=== PATIENT | female | born 1995 | race Caucasian/White ===

== ENCOUNTER 2020-09-01 07:58 | Outpatient (REF) | payer OTHER, SELFPAY ==
[2020-09-01 11:13] LABS: MANUAL DIFF FLAG NO
[2020-09-01 11:24] LABS: Basophils Percent Auto 0.7 % (0-2); Eosinophils Absolute Auto 0.3 X10*3/uL (0.0-0.4); Eosinophils Percent Auto 4.4 % (0-4); Hematocrit 37.5 % (37-47); Hemoglobin 12.7 g/dl (12.0-16.0); Imm Gran Abs Auto 0.02 X10*3/uL (0.00-0.03); Imm Gran Pct Auto 0.3 % (0.0-0.4); Lymphocytes Absolute Auto 1.9 X10*3/uL (1.2-4.9); Lymphocytes Percent Auto 31.6 % (20-40); Mean Corpuscular HGB Conc 33.9 g/dl (31.0-35.0); Mean Corpuscular Hemoglobin 30.7 pg (27.0-33.0); Mean Corpuscular Volume 90.6 fL (80-98); Mean Platelet Volume 9.8 fL (9.4-12.3); Monocytes Absolute Auto 0.5 X10*3/uL (0.1-1.2); Monocytes Percent Auto 7.6 % (2-11); Neutrophils Absolute Auto 3.4 X10*3/uL (2.0-8.3); Neutrophils Percent Auto 55.4 % (45-73); Platelet Count 289 X10*3/uL (160-400); Red Blood Count 4.14 X10*6/uL (4.20-5.50); White Blood Count 6.1 X10*3/uL (4.8-10.8)
[2020-09-01 11:41] LABS: Anion Gap 10 (12-20); Blood Urea Nitrogen 11 mg/dL (9-16); Calcium 8.9 mg/dL (8.4-10.2); Carbon Dioxide 29 mmol/L (22-29); Chloride 105 mmol/L (96-108); Cholesterol 153 mg/dL; Estimated Glomerular Filt Rate > 60; Glucose Fasting 94 mg/dL (60-99); HDL Cholesterol 44 mg/dL; LDL Cholesterol Calculated 96 mg/dl; Magnesium 2.1 mg/dL (1.6-2.6); Potassium 4.5 mmol/l (3.3-5.1); Sodium 139 mmol/L (135-145); Triglycerides 69 mg/dL
[2020-09-01 12:03] LABS: TSH reflex Free T4 1.53 mIU/mL (0.32-4.0)
== END 2020-09-01 07:59 | disposition home or self-care (01) ==
LOC: HO.HMGCLDS 07:58
PROVIDERS: PCP Internal Medicine; Visit Provider Internal Medicine
DX: R10.13 Epigastric pain (principal); F10.11 Alcohol abuse, in remission; Z00.01 Encounter for general adult medical examination with abnormal findings; E04.9 Nontoxic goiter, unspecified; F41.1 Generalized anxiety disorder
CPT/HCPCS: 36415; 80048; 80061; 83735; 84443; 85025

== ENCOUNTER 2020-09-13 09:45 | Outpatient (REF) | payer OTHER, SELFPAY ==
--- NOTE | 2020-09-13 09:48 | US_ITS ---
EXAMINATION: US THYROID CLINICAL INFORMATION: Nontoxic goiter, unspecified. COMPARISON: None. TECHNIQUE: Linear transducer mazariegos-scale and color Doppler examination with attention to the region of the thyroid. FINDINGS: SIZE: Measurements of the thyroid lobes and nodules are given in sagittal, anteroposterior and transverse dimensions respectively. Right Thyroid Lobe: 5.4 x 1.5 x 1.7 cm, volume 6.9 mL. Parenchyma: The gland echotexture is homogeneous. Thyroid vascularity is increased. Left Thyroid Lobe: 4.9 x 1.3 x 1.9 cm, volume 6.4 mL. Parenchyma: The gland echotexture is homogeneous. Thyroid vascularity is increased. Isthmus: 0.4 cm in maximum AP dimension. RIGHT THYROID LOBE: No nodules. ISTHMUS: No nodules. LEFT THYROID LOBE: No nodules. NODES: No lymphadenopathy is seen in the tissue surrounding the thyroid gland. US/US thyroid IMPRESSION: Normal thyroid ultrasound.
== END 2020-09-13 09:46 | disposition home or self-care (01) ==
LOC: HO.HMGCX 09:45
PROVIDERS: PCP Internal Medicine; Visit Provider Internal Medicine
DX: E04.9 Nontoxic goiter, unspecified (principal)
CPT/HCPCS: 76536

== ENCOUNTER 2020-10-30 11:17 | Outpatient (REF) | payer OTHER, SELFPAY ==
[2020-11-01 08:27] LABS: ~Hepatitis B Surface Antibody NONREACTIVE (Nonreactive)
== END 2020-10-30 11:18 | disposition home or self-care (01) ==
LOC: HO.HMGCLDS 11:17
PROVIDERS: PCP Internal Medicine; Visit Provider Internal Medicine
DX: Z28.3 Underimmunization status (principal)
CPT/HCPCS: 36415; 86706

== ENCOUNTER 2020-12-22 09:48 | Outpatient (REF) | payer OTHER, SELFPAY ==
[2020-12-22 11:53] LABS: Cholesterol 138 mg/dL; Glucose Fasting 89 mg/dL (60-99); HDL Cholesterol 42 mg/dL; LDL Cholesterol Calculated 83 mg/dl; Triglycerides 65 mg/dL
[2020-12-25 10:52] LABS: TS Negative Control Passed; TS Panel A 0; TS Panel B 0; TS Positive Control Passed; TSpotTB Negative (SeeBelow)
[2020-12-30 05:12] LABS: Vitamin D 25-OH, D2 <4 ng/mL; Vitamin D 25-OH, D3 20 ng/mL; Vitamin D 25-OH, Total 20 ng/mL (30-100)
== END 2020-12-22 09:49 | disposition home or self-care (01) ==
LOC: HO.HMGCLDS 09:48
PROVIDERS: PCP Internal Medicine; Visit Provider Internal Medicine
DX: Z00.00 Encounter for general adult medical examination without abnormal findings (principal); R10.13 Epigastric pain; Z13.220 Encounter for screening for lipoid disorders; Z11.1 Encounter for screening for respiratory tuberculosis; Z23 Encounter for immunization
CPT/HCPCS: 36415; 80061; 82306; 82947; 86481

== ENCOUNTER 2021-01-08 12:35 | Outpatient (REF) | payer OTHER, SELFPAY ==
[2021-01-09 08:21] LABS: HBS Num1 24.42 mIU/mL (0-7.99); ~Hepatitis B Surface Antibody REACTIVE (Nonreactive)
== END 2021-01-08 12:36 | disposition home or self-care (01) ==
LOC: HO.HMGCLDS 12:35
PROVIDERS: PCP Internal Medicine; Visit Provider Internal Medicine
DX: Z28.3 Underimmunization status (principal)
CPT/HCPCS: 36415; 86706; 86787

== ENCOUNTER 2021-02-01 14:34 | Outpatient (REF) | payer OTHER, SELFPAY ==
[2021-02-01 16:57] LABS: Alanine Aminotransferase 19 U/L (0-31); Albumin Level 4.3 g/dL (3.5-5.0); Alkaline Phosphatase 62 U/L (39-117); Aspartate Amino Transferase 17 U/L (5-31); Bilirubin Direct 0.2 mg/dL (0.0-0.5); Bilirubin Total 0.5 mg/dL (0.0-1.0); C Reactive Protein 0.31 mg/dL (< or = 0.50); Lipase 47 U/L (8-78); Total Protein 6.9 g/dL (6.5-8.0)
[2021-02-03 14:02] LABS: H Pylori Breath Test NOT DETECTED (NOT DETECTED)
[2021-02-07 17:12] LABS: Transglutaminase Ab IgG 1 U/mL; Transglutaminase IgA 1 U/mL
== END 2021-02-01 14:35 | disposition home or self-care (01) ==
LOC: HO.LAB 14:34
PROVIDERS: PCP Internal Medicine; Visit Provider Nurse Practitioner Family
DX: R10.13 Epigastric pain (principal); R10.11 Right upper quadrant pain; R19.7 Diarrhea, unspecified; F17.200 Nicotine dependence, unspecified, uncomplicated; Z83.79 Family history of other diseases of the digestive system; Z12.11 Encounter for screening for malignant neoplasm of colon
CPT/HCPCS: 36415; 80076; 83013; 83516; 83690; 86140

== ENCOUNTER 2021-02-19 07:59 | Outpatient (REF) | payer OTHER, SELFPAY ==
--- NOTE | ~2021-02-19 | US_ITS ---
EXAMINATION: US ABDOMEN COMPLETE CLINICAL INFORMATION: Epigastric pain. COMPARISON: Previous renal ultrasound February 2016 TECHNIQUE: Real-time imaging of the abdominal viscera. FINDINGS: PANCREAS: The head and body the pancreas are normal. The tail is not well visualized due to bowel gas. ABDOMINAL AORTA: The proximal, mid, and distal segments are normal in caliber. INFERIOR VENA CAVA: Visualized portions are normal. LIVER: The liver is normal in size. The liver contour is normal. Liver echotexture is slightly increased. No focal hepatic lesion. There is no intrahepatic biliary duct dilatation seen. GALLBLADDER: The gallbladder is contracted. COMMON BILE DUCT: Normal in caliber measuring 0.2 cm in diameter. RIGHT KIDNEY: Normal. No hydronephrosis. No renal calculi or focal parenchymal lesions. The kidney measures 11.3 cm in maximum dimension. LEFT KIDNEY: Normal. No hydronephrosis. No renal calculi or focal parenchymal lesions. The kidney measures 11.5 cm in maximum dimension. SPLEEN: Normal. The spleen measures 11.5 cm in maximum dimension. FREE FLUID: None. US/US abdomen complete IMPRESSION: Slightly echogenic liver. Contracted gallbladder. Limited visualization of the tail the pancreas.
== END 2021-02-19 08:00 | disposition home or self-care (01) ==
LOC: HO.US 07:59
PROVIDERS: PCP Internal Medicine; Visit Provider Nurse Practitioner Family
DX: R10.13 Epigastric pain (principal)
CPT/HCPCS: 76700

== ENCOUNTER → 2021-03-07 09:25 | Outpatient (BNVA) | payer OTHER, SELFPAY | PROVIDERS: PCP Internal Medicine; Referring Provider Internal Medicine; Visit Provider Nurse Practitioner Family | DX: K21.9 Gastro-esophageal reflux disease without esophagitis (principal); R10.13 Epigastric pain; R19.7 Diarrhea, unspecified; F10.21 Alcohol dependence, in remission; Z88.8 Allergy status to other drugs, medicaments and biological substances | CPT/HCPCS: 99212 ==

== ENCOUNTER 2021-06-25 08:26 | Outpatient (REF) | payer OTHER, SELFPAY ==
[2021-06-25 11:54] LABS: MANUAL DIFF FLAG NO
[2021-06-25 12:12] LABS: Basophils Absolute Auto 0.1 X10*3/uL (0.0-0.2); Basophils Percent Auto 0.9 % (0-2); Eosinophils Absolute Auto 0.4 X10*3/uL (0.0-0.4); Eosinophils Percent Auto 6.6 % (0-4); Hematocrit 38.2 % (37-47); Hemoglobin 12.9 g/dl (12.0-16.0); Imm Gran Abs Auto 0.01 X10*3/uL (0.00-0.03); Imm Gran Pct Auto 0.2 % (0.0-0.4); Lymphocytes Absolute Auto 2.1 X10*3/uL (1.2-4.9); Lymphocytes Percent Auto 33.7 % (20-40); Mean Corpuscular HGB Conc 33.8 g/dl (31.0-35.0); Mean Corpuscular Hemoglobin 30.4 pg (27.0-33.0); Mean Corpuscular Volume 89.9 fL (80-98); Mean Platelet Volume 9.7 fL (9.4-12.3); Monocytes Absolute Auto 0.4 X10*3/uL (0.1-1.2); Monocytes Percent Auto 6.5 % (2-11); Neutrophils Absolute Auto 3.3 X10*3/uL (2.0-8.3); Neutrophils Percent Auto 52.1 % (45-73); Platelet Count 300 X10*3/uL (160-400); Red Blood Count 4.25 X10*6/uL (4.20-5.50); Red Cell Distribution Width 11.2 % (11.0-16.0); White Blood Count 6.4 X10*3/uL (4.8-10.8)
[2021-06-25 12:39] LABS: Alanine Aminotransferase 14 U/L (0-31); Albumin Level 4.3 g/dL (3.5-5.0); Alkaline Phosphatase 46 U/L (39-117); Anion Gap 10 (12-20); Aspartate Amino Transferase 15 U/L (5-31); Bilirubin Total 0.5 mg/dL (0.0-1.0); Blood Urea Nitrogen 11 mg/dL (9-16); Calcium 9.4 mg/dL (8.4-10.2); Carbon Dioxide 26 mmol/L (22-29); Chloride 107 mmol/L (96-108); Cholesterol 149 mg/dL; Estimated Glomerular Filt Rate > 60; Glucose Fasting 80 mg/dL (60-99); HDL Cholesterol 41 mg/dL; LDL Cholesterol Calculated 80 mg/dl; Potassium 3.8 mmol/L (3.3-5.1); Sodium 139 mmol/L (135-145); Triglycerides 144 mg/dL
[2021-06-25 12:50] LABS: Vitamin B12 537 pg/mL (200-900)
[2021-06-25 12:51] LABS: TSH reflex Free T4 1.73 uIU/mL (0.32-4.0)
[2021-06-29 14:11] LABS: Vitamin D 25-OH, D2 <4 ng/mL; Vitamin D 25-OH, D3 22 ng/mL; Vitamin D 25-OH, Total 22 ng/mL (30-100)
== END 2021-06-25 08:27 | disposition home or self-care (01) ==
LOC: HO.HMGCLDS 08:26
PROVIDERS: PCP Internal Medicine; Visit Provider Internal Medicine
DX: F41.1 Generalized anxiety disorder (principal); R00.2 Palpitations; R06.00 Dyspnea, unspecified; Z72.0 Tobacco use
CPT/HCPCS: 36415; 80053; 80061; 82306; 82607; 84443; 85025

== ENCOUNTER 2023-03-26 10:55 | Outpatient (AMB) | payer OTHER, SELFPAY ==
--- NOTE | 2023-03-26 10:56 | MHC.PC.OV ---
Vital Signs 03/26/23 10:59 Height 5 ft 1 in Weight 165 lb BMI 31.2 BP 116/74 Blood Pressure Location Lt brachial Position Sitting Pulse 84 Pulse Source Pulse Oximeter Pulse Oximetry (%) 99 Oxygen Delivery Method Room Air Intake Visit Reasons: ANNUAL PE Allergies No Known Allergies Allergy (Verified 03/26/23 11:00) Medication List - Last Reconciled 03/26/23 by Roger Dill MD bupropion HCl 200 mg PO QAM norethindrone (contraceptive) 0.35 mg PO DAILY Tobacco use date assessed: 03/26/23 Dental Screening Dental Screen Date: 03/26/23 Did you have a dental visit in the last 12 months?: Yes Did you have a dental problem in the last 6 months where you did not have access to dental care?: No Was dental information given to patient?: No HPI ANNUAL PE HPI Details Patient is 28-year-old female came in today for a physical exam Patient is seeing OBGYN in [facility] every year last visit was 6 months ago Pap smear and breast exams are through them. Patient is complaining of feeling as if there is something stuck in her throat At time she is feeling pain and having difficulty swallowing as well. Patient says that it has been happening for the past 6 months pretty consistently. She has no fever no cough no chills, she drinks no alcohol or smoke cigarettes, very occasionally she does smoke marijuana. On examination she does have enlarged tonsils mild erythema of throat but no infection I have placed a referral for her to be evaluated by ENT specialist. Depression/anxiety: Patient is taking Wellbutrin through psych med provider Lab order placed to be done fasting. BMI is elevated at 31.2 need to lose weight. [facility] Medical History Anxiety, generalized Encounter for general adult medical examination with abnormal findings Epigastric abdominal pain History of alcohol abuse Tobacco abuse Surgical History No pertinent past surgical history Family History Father Unknown family medical history Mother Unknown family medical history Social History Housing: House Alcohol intake: never Patient Tobacco Use Status: Former Tobacco user (2019) Tobacco use type: Cigarette Years Smoked: 10 years e-Cigarette/Vaping Use: Never Used service: No Current occupational status: employed Cognitive needs: No Hearing needs: No Vision needs: No Questionnaire Thrive Questionnaire Date Thrive assessed: 03/27/22 AUDIT C Alcohol Use Questionnaire (AUDIT-C) 1. How often do you have a drink containing alcohol?: Never 3. How often do you have six or more drinks on one occasion?: Never Total Score: 0 Score Reviewed/Action Taken: Yes AMELIE-7 AMB Questionnaire AMELIE-7 Date AMELIE - 7 assessed: 11/16/21 Source: Developed by Drs. Tito Encinas, Mayte Pierson, Valdemar Garcia and colleagues, with an educational piedad from [employer] Review of Systems Const Denies chills, Denies fever(s) and Denies headache(s) Eyes Denies blurry vision ENT Denies headache(s), Denies nasal discharge, Denies nasal obstruction, Denies odynophagia and Denies sinus pain Card Denies chest pain at rest and Denies chest pain with activity Resp Denies cough and Denies hemoptysis GI Denies diarrhea, Denies odynophagia, Denies vomiting and Denies hematemesis Reports as per HPI Musc Denies abnormal gait Skin/Breast Reports as per HPI Neuro Denies Neuro-related abnormal movements, Denies Abnormal speech present, Denies abnormal gait, Denies headache(s) and Denies Sensory deficit (Neuro) Psych Denies mood swings and Denies paranoia Endo Reports as per HPI Jim/Lymph Reports as per HPI Aller/Immun Reports as per HPI Physical exam (Primary Care) Vital Signs: Last Vital Signs Pulse 84 03/26/23 10:59 BP 116/74 03/26/23 10:59 Pulse Ox 99 03/26/23 10:59 Oxygen Delivery Method Room Air 03/26/23 10:59 BMI result Body Mass Index 31.2 Tobacco/Smoking Status: Tobacco use Status Tobacco use date assessed 03/26/23 03/26/23 11:02 Patient Tobacco Use Status Former Tobacco user (2019) 03/26/23 11:02 Tobacco use type Cigarette 03/26/23 11:02 e-Cigarette/Vaping Use Never Used 03/26/23 11:02 Thrive Assessment: Date of Thrive Assessment Date Thrive assessed 03/27/22 03/26/23 11:02 Const General: cooperative, comfortable and no acute distress Orientation/consciousness: patient oriented x3 HENMT Head: Yes normocephalic and Yes atraumatic Eyes General: appearance normal, both eyes and all related structures Pupils: Equal, round and reactive pupils present EOM: EOMs intact bilaterally Neck Neck: Yes supple and No lymphadenopathy Thyroid: Thyroid normal Lymphatic: no lymphadenopathy noted Resp Effort & Inspection: normal respiratory effort and able to speak in complete sentences Auscultation: clear to auscultation bilaterally Cardio Heart sounds: S1 normal heart sound present and S2 normal heart sound present GI Palpation (GI): Soft to palpation and nontender Auscultation: normal bowel sounds General: Yes no CVA tenderness Back/Spine/Pelvis Back: no CVA tenderness Skin General skin exam: elasticity normal and turgor normal Neuro General: patient oriented x3 and gait normal Cranial nerves: Yes Equal, round and reactive pupils present Speech: No Abnormal speech present Sensory Exam: No Sensory deficit (Neuro) Coordination: tandem gait normal and Romberg test negative Extrem General: Yes normal exam except as noted and No edema Assessment and Plan Assessment & Plan (1) Throat discomfort: Code(s): R07.0 - Pain in throat (2) Encounter for general adult medical examination with abnormal findings: Code(s): Z00.01 - Encounter for general adult medical examination with abnormal findings (3) Feeling of foreign body in throat: Code(s): R09.89 - Other specified symptoms and signs involving the circulatory and respiratory systems (4) Tobacco abuse: Code(s): Z72.0 - Tobacco use (5) Major depression, recurrent: Code(s): F33.9 - Major depressive disorder, recurrent, unspecified (6) Vitamin D deficiency: Code(s): E55.9 - Vitamin D deficiency, unspecified Plan Patient is 28-year-old female came in today for a physical exam Patient is seeing OBGYN in [facility] every year last visit was 6 months ago Pap smear and breast exams are through them. Patient is complaining of feeling as if there is something stuck in her throat At time she is feeling pain and having difficulty swallowing as well. Patient says that it has been happening for the past 6 months pretty consistently. She has no fever no cough no chills, she drinks no alcohol or smoke cigarettes, very occasionally she does smoke marijuana. On examination she does have enlarged tonsils mild erythema of throat but no infection I have placed a referral for her to be evaluated by ENT specialist. Lab order placed to be done fasting. BMI is elevated at 31.2 need to lose weight. Orders: Orders Comprehensive [place]. Panel Fast Today E55.9 - Vitamin D deficiency, unspecified, F33.9 - Major depressive disorder, recurrent, unspecified, F41.1 - Generalized anxiety disorder, Z00.01 - Encounter for general adult medical examination with abnormal findings, Z72.0 - Tobacco use Lipid Panel Today E55.9 - Vitamin D deficiency, unspecified, F33.9 - Major depressive disorder, recurrent, unspecified, F41.1 - Generalized anxiety disorder, Z00.01 - Encounter for general adult medical examination with abnormal findings, Z72.0 - Tobacco use Vitamin D 25-OH (D2 and D3) Today E55.9 - Vitamin D deficiency, unspecified, F33.9 - Major depressive disorder, recurrent, unspecified, F41.1 - Generalized anxiety disorder, Z00.01 - Encounter for general adult medical examination with abnormal findings, Z72.0 - Tobacco use Complete Blood Count Auto Diff Today E55.9 - Vitamin D deficiency, unspecified, F33.9 - Major depressive disorder, recurrent, unspecified, F41.1 - Generalized anxiety disorder, Z00.01 - Encounter for general adult medical examination with abnormal findings, Z72.0 - Tobacco use Referrals Ear/Nose/Throat Referral R07.0 - Pain in throat, R09.89 - Other specified symptoms and signs involving the circulatory and respiratory systems Coding Level of Care Code Est Pt Prev Care 18-39y(06446) Diagnoses Throat discomfort R07.0 Encounter for general adult medical examination with abnormal findings Z00.01 Feeling of foreign body in throat R09.89 Tobacco abuse Z72.0 Major depression, recurrent F33.9 Vitamin D deficiency E55.9
[2023-03-26 10:59] VITALS: BP 116/74; PULSE 84; O2SAT 99; BMI 31.2
== END 2023-03-26 11:14 | disposition home or self-care (01) ==
PROVIDERS: Visit Provider Internal Medicine
DX: Z00.01 Encounter for general adult medical examination with abnormal findings (principal); R07.0 Pain in throat; F33.9 Major depressive disorder, recurrent, unspecified; E55.9 Vitamin D deficiency, unspecified; R09.89 Other specified symptoms and signs involving the circulatory and respiratory systems; Z72.0 Tobacco use
CPT/HCPCS: 99395

== ENCOUNTER 2024-03-31 11:31 | Outpatient (AMB) | payer OTHER, SELFPAY ==
[2024-03-31 11:35] VITALS: BP 120/70; PULSE 64; O2SAT 100; BMI 29.7
--- NOTE | 2024-03-31 11:35 | MHC.PC.OV ---
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 Type Required: No Allergies No Known Allergies Allergy (Verified 03/31/24 11:36) Medication List - Last Reconciled 03/31/24 by Roger Dill MD norethindrone (contraceptive) 0.35 mg PO DAILY Tobacco use date assessed: 03/31/24 Dental Screening Dental Screen Date: 03/31/24 Did you have a dental visit in the last 12 months?: Yes Did you have a dental problem in the last 6 months where you did not have access to dental care?: No Was dental information given to patient?: Yes HPI ANNUAL PE HPI Details Physical exam appointment patient is 28-year-old female [facility] through [facility] as well Offer no new complaints today Lab order placed to be done fasting Patient have vitamin-D deficiency she is taking supplements daily. Physical exam 1 year [facility] Medical History Tobacco abuse Encounter for general adult medical examination with abnormal findings History of alcohol abuse Epigastric abdominal pain Anxiety, generalized Surgical History No pertinent past surgical history Family History Father Unknown family medical history Mother Unknown family medical history Social History Housing: House Alcohol intake: never Patient Tobacco Use Status: Former Tobacco user (2019) Tobacco use type: Cigarette Years Smoked: 10 years e-Cigarette/Vaping Use: Never Used service: No Current occupational status: employed Cognitive needs: No Hearing needs: No Vision needs: No Questionnaire PHQ-9 Over the last 2 weeks, how often have you been bothered by any of the following problems? 1. Little interest or pleasure in doing things: not at all 2. Feeling down, depressed, or hopeless: not at all 3. Trouble falling or staying asleep, or sleeping too much: not at all 4. Feeling tired or having little energy: not at all 5. Poor appetite or overeating: not at all 6. Feeling bad about yourself - or that you are a failure or have let yourself or your family down: not at all 7. Trouble concentrating on things, such as reading the newspaper or watching television: not at all 8. Moving or speaking so slowly that other people could have noticed. Or the opposite - being so fidgety or restless that you have been moving around a lot more than usual: not at all 9. Thoughts that you would be better off or of hurting yourself in some way: not at all Total score: 0 Depression Screening Interpretation: Negative Depression Screening Done: Yes 93532 - PHQ-9 Billing: Yes Source: Developed by Drs. Tito Encinas, Mayte Pierson, Valdemar Garcia and colleagues, with an educational piedad from [employer]. Thrive Questionnaire Date Thrive assessed: 03/31/24 I am a: Patient What is your living situation today?: I have a steady place to live Within the past 12 months, did the food you bought not last and you didn't have the money to get more?: Never true Within the past 12 months, did you worry whether your food would run out before you got money to buy more?: Never true Do you have trouble paying for medicines?: No Do you have trouble getting transportation to medical appointments?: No Do you have trouble paying your heating and electricity bill?: No Do you have trouble taking care of your child, family member or friend?: No Do you have trouble with day-to-day activities such as bathing, preparing meals, shopping, managing finances, etc.?: No Are you currently unemployed and looking for a job?: No Are you interested in more education?: No Please select the resources that you would like help with: Housing/Intermediate Currently or been in a relationship where the following occur: No concerns reported THRIVE Score: 0 AUDIT C Alcohol Use Questionnaire (AUDIT-C) 1. How often do you have a drink containing alcohol?: Never Total Score: 0 Score Reviewed/Action Taken: Yes AMELIE-7 AMB Questionnaire AMELIE-7 Date AMELIE - 7 assessed: 03/31/24 Feeling nervous, anxious, or on edge: 1 = Several days Not being able to stop or control worryin = Several days Worrying too much about different things: 1 = Several days Trouble relaxin = Several days Being so restless that it is hard to sit still: 0 = Not at all Becoming easily annoyed or irritable: 0 = Not at all Feeling afraid as if something awful might happen: 0 = Not at all Total AMELIE-7 score (0-4 normal; 5-9 mild; 10-14 moderate; 15-21 severe): 4 Source: Developed by Drs. Tito Encinas, Mayte Pierson, Valdemar Garcia and colleagues, with an educational piedad from [employer]. AMELIE-7 Assessment Billing AMELIE-7 Assessment Tool: AMELIE-7 Assessment 84512 Review of Systems Const Denies chills, Denies fever(s) and Denies headache(s) Eyes Denies blurry vision ENT Denies headache(s), Denies nasal discharge, Denies nasal obstruction, Denies odynophagia and Denies sinus pain Card Denies chest pain at rest and Denies chest pain with activity Resp Denies cough and Denies hemoptysis GI Denies diarrhea, Denies odynophagia, Denies vomiting and Denies hematemesis Reports as per HPI Musc Denies abnormal gait Skin/Breast Reports as per HPI Neuro Denies Neuro-related abnormal movements, Denies Abnormal speech present, Denies abnormal gait, Denies headache(s) and Denies Sensory deficit (Neuro) Psych Denies mood swings and Denies paranoia Endo Reports as per HPI Jim/Lymph Reports as per HPI Aller/Immun Reports as per HPI Physical exam (Primary Care) Vital Signs: Last Vital Signs Pulse 64 03/31/24 11:35 BP 120/70 03/31/24 11:35 Pulse Ox 100 03/31/24 11:35 BMI result Body Mass Index 29.7 Tobacco/Smoking Status: Tobacco use Status Tobacco use date assessed 03/31/24 03/31/24 11:36 Patient Tobacco Use Status Former Tobacco user (2020) 03/31/24 11:36 Tobacco use type Cigarette 03/31/24 11:36 e-Cigarette/Vaping Use Never Used 03/31/24 11:36 PHQ-9: PHQ-9 Score PHQ-9: Total score 0 03/31/24 11:36 Depression Screening Interpretation: Negative Thrive Assessment: Date of Thrive Assessment Date Thrive assessed 03/31/24 03/31/24 11:36 Currently or been in a relationship where the following occur: No concerns reported Const General: cooperative, comfortable and no acute distress Orientation/consciousness: patient oriented x3 HENMT Head: Yes normocephalic and Yes atraumatic Eyes General: appearance normal, both eyes and all related structures Pupils: Equal, round and reactive pupils present EOM: EOMs intact bilaterally Neck Neck: Yes supple and No lymphadenopathy Thyroid: Thyroid normal Lymphatic: no lymphadenopathy noted Resp Effort & Inspection: normal respiratory effort and able to speak in complete sentences Auscultation: clear to auscultation bilaterally Cardio Heart sounds: S1 normal heart sound present and S2 normal heart sound present GI Palpation (GI): Soft to palpation and nontender Auscultation: normal bowel sounds General: Yes no CVA tenderness Back/Spine/Pelvis Back: no CVA tenderness Skin General skin exam: elasticity normal and turgor normal Neuro General: patient oriented x3 and gait normal Cranial nerves: Yes Equal, round and reactive pupils present Speech: No Abnormal speech present Sensory Exam: No Sensory deficit (Neuro) Coordination: tandem gait normal and Romberg test negative Extrem General: Yes normal exam except as noted and No edema Assessment and Plan Assessment & Plan (1) Adult general medical examination: Code(s): Z00.00 - Encounter for general adult medical examination without abnormal findings (2) Anxiety, generalized: Code(s): F41.1 - Generalized anxiety disorder (3) Vitamin D deficiency: Code(s): E55.9 - Vitamin D deficiency, unspecified Plan Physical exam appointment patient is 28-year-old female [facility] as well Offer no new complaints today Lab order placed to be done fasting Patient have vitamin-D deficiency she is taking supplements daily. Anxiety stable patient is seeing therapist Physical exam 1 year Orders: Orders Complete Blood Count Auto Diff Today E55.9 - Vitamin D deficiency, unspecified, F33.9 - Major depressive disorder, recurrent, unspecified, F41.1 - Generalized anxiety disorder, Z00.01 - Encounter for general adult medical examination with abnormal findings Comprehensive [place]. Panel Fast Today E55.9 - Vitamin D deficiency, unspecified, F33.9 - Major depressive disorder, recurrent, unspecified, F41.1 - Generalized anxiety disorder, Z00.01 - Encounter for general adult medical examination with abnormal findings Lipid Panel Today E55.9 - Vitamin D deficiency, unspecified, F33.9 - Major depressive disorder, recurrent, unspecified, F41.1 - Generalized anxiety disorder, Z00.01 - Encounter for general adult medical examination with abnormal findings TSH reflex Free T4 Today E55.9 - Vitamin D deficiency, unspecified, F33.9 - Major depressive disorder, recurrent, unspecified, F41.1 - Generalized anxiety disorder, Z00.01 - Encounter for general adult medical examination with abnormal findings Vitamin D 25-OH (D2 and D3) Today E55.9 - Vitamin D deficiency, unspecified, F33.9 - Major depressive disorder, recurrent, unspecified, F41.1 - Generalized anxiety disorder, Z00.01 - Encounter for general adult medical examination with abnormal findings Coding Level of Care Code Est Pt Prev Care 18-39y(59437) Diagnoses Adult general medical examination Z00.00 Anxiety, generalized F41.1 Vitamin D deficiency E55.9 Additional Codes AMELIE-7 Assessment Billing - AMELIE-7 Assessment Tool: AMELIE-7 Assessment [id number] ([id number])
== END 2024-03-31 16:30 | disposition home or self-care (01) ==
PROVIDERS: PCP Internal Medicine; Visit Provider Internal Medicine
DX: Z00.00 Encounter for general adult medical examination without abnormal findings (principal); F41.1 Generalized anxiety disorder; E55.9 Vitamin D deficiency, unspecified
CPT/HCPCS: 99395

== ENCOUNTER 2024-04-08 08:00 | Outpatient (REF) | payer OTHER, SELFPAY ==
[2024-04-08 10:56] LABS: MANUAL DIFF FLAG NO
[2024-04-08 11:15] LABS: Basophils Absolute Auto 0.1 X10*3/uL (0.0-0.2); Basophils Percent Auto 0.8 % (0-2); Eosinophils Absolute Auto 0.3 X10*3/uL (0.0-0.4); Eosinophils Percent Auto 5.6 % (0-4); Hematocrit 35.5 % (37.0-47.0); Hemoglobin 12.1 g/dl (12.0-16.0); Imm Gran Abs Auto 0.01 X10*3/uL (0.00-0.03); Imm Gran Pct Auto 0.2 % (0.0-0.4); Lymphocytes Absolute Auto 2.2 X10*3/uL (1.2-4.9); Lymphocytes Percent Auto 36.4 % (20-40); Mean Corpuscular HGB Conc 34.1 g/dl (31.0-35.0); Mean Corpuscular Hemoglobin 30.9 pg (27.0-33.0); Mean Corpuscular Volume 90.8 fL (80.0-98.0); Mean Platelet Volume 9.8 fL (9.4-12.3); Monocytes Absolute Auto 0.3 X10*3/uL (0.1-1.2); Monocytes Percent Auto 5.5 % (2-11); Neutrophils Absolute Auto 3.1 x10*3/uL (2.0-8.3); Neutrophils Percent Auto 51.5 % (45-73); Platelet Count 292 X10*3/uL (160-400); Red Blood Count 3.91 X10*6/uL (4.20-5.50); Red Cell Distribution Width 11.4 % (11.0-16.0)
[2024-04-08 11:36] LABS: Alanine Aminotransferase 13 U/L (0-31); Alkaline Phosphatase 35 U/L (39-117); Anion Gap 12 (12-20); Aspartate Amino Transferase 15 U/L (5-31); Bilirubin Total 0.2 mg/dL (0.0-1.0); Blood Urea Nitrogen 8 mg/dL (9-16); Calcium 9.4 mg/dL (8.4-10.2); Carbon Dioxide 24 mmol/L (22-29); Chloride 106 mmol/L (96-108); Cholesterol 168 mg/dL (<200); Estimated Glomerular Filt Rate > 60; Glucose Fasting 96 mg/dL (60-99); HDL Cholesterol 58 mg/dL (>40); LDL Cholesterol Calculated 96 mg/dL (<100); Potassium 3.9 mmol/L (3.3-5.1); Sodium 138 mmol/L (135-145); Total Protein 6.8 g/dL (6.5-8.0); Triglycerides 73 mg/dL (<150)
[2024-04-08 12:02] LABS: TSH reflex Free T4 0.95 uIU/mL (0.32-4.0)
[2024-04-14 15:04] LABS: Vitamin D 25-OH, D2 <4 ng/mL; Vitamin D 25-OH, D3 31 ng/mL; Vitamin D 25-OH, Total 31 ng/mL (30-100)
== END 2024-04-08 08:01 | disposition home or self-care (01) ==
LOC: HO.HMGCLDS 08:00
PROVIDERS: PCP Internal Medicine; Visit Provider Internal Medicine
DX: Z00.01 Encounter for general adult medical examination with abnormal findings (principal); F41.1 Generalized anxiety disorder; F33.9 Major depressive disorder, recurrent, unspecified; E55.9 Vitamin D deficiency, unspecified
CPT/HCPCS: 36415; 80053; 80061; 82306; 84443; 85025

== ENCOUNTER → 2024-10-22 08:56 | Outpatient (AMB) | payer OTHER, SELFPAY ==
--- NOTE | 2024-10-22 09:01 | A.OFFPC_ITS ---
Vital Signs 10/22/24 09:02 Height 5 ft 1 in Weight 143 lb 6 oz BMI 27.1 BP 118/86 Blood Pressure Location Lt brachial Position Sitting Pulse 65 Pulse Source Pulse Oximeter Temp 97.4 F Temp Source Oral Pulse Oximetry (%) 100 Oxygen Delivery Method Room Air Intake Visit Reasons: Possible allergies for months Allergies No Known Allergies Allergy (Verified 10/22/24 09:03) Medication List - Last Reconciled 10/22/24 by Roger Dill MD norethindrone (contraceptive) 0.35 mg PO DAILY Tobacco use date assessed: 10/22/24 Dental Screening Dental Screen Date: 10/22/24 Did you have a dental visit in the last 12 months?: Yes Did you have a dental problem in the last 6 months where you did not have access to dental care?: No Was dental information given to patient?: Patient has dentist HPI Possible allergies for months HPI Details Patient is a 29-year-old female came in today to talk about allergies Patient has a history of recurrent sinusitis Currently having severe nasal congestion which is causing difficulty sleeping at night Patient has tried using nasal spray [id number] which has not helped however does not know the name but tells me that it is a steroid nasal spray Complaining of postnasal drip and irritated cough as well She is taking long-acting antihistamine [id number]-pffslzl which also has not resolved the symptoms I am starting her on montelukast Azelastine nasal sprays sent to be used 2 times a day she may continue with Flonase nasal spray as well We will book the appointment with the allergy immunology Follow-up telephone visit in 1 week Problem List - Allergic Rhinitis - Recurrent Sinusitis - allergies - difficulty sleeping at night - postnasal drip Patient Instructions - Continue with the prescribed medicatio ns, including the usage of montelukast and the new nasal spray. - Take the new nasal spray two times a d ay as directed. - You may continue using Flonase . - Expect a follow-up call to check on sy mptoms and confirm appointment setting with the pmp. - Contact the office if there are any is sues obtaining medications. - allergy immunology referral placed Review of Systems - General: No fever no chills - Neurological: No headaches no dizziness - Ear nose throat: No sore throat no hearing difficulty no ear pain - Cardiovascular: No syncope, no chest pain, no palpitations - Gastrointestinal: No nausea vomiting or diarrhea - Endocrine: No polyuria polydipsia no heat intolerance - Genitourinary: No dysuria , no blood in urine Physical Exam General: No acute distress HEENT: Nasal congestion, postnasal drip Neck: Supple, neck pain Respiratory system: Able to talk in full sentences, no audible wheeze cardiovascular: S1-S2 regular in rate and rhythm Gastrointestinal: No pain Extremities: No new findings CREDIT COLLECTIONS MANAGER: Alert awake oriented x3 motor sensory intact Skin: Normal turgor, occasional lip swelling [facility] Medical History Tobacco abuse Encounter for general adult medical examination with abnormal findings History of alcohol abuse Epigastric abdominal pain Anxiety, generalized Surgical History No pertinent past surgical history Family History Father Unknown family medical history Mother Unknown family medical history Social History Housing: House Alcohol intake: never Patient Tobacco Use Status: Former Tobacco user (2019) Tobacco use type: Cigarette Years Smoked: 10 years e-Cigarette/Vaping Use: Never Used service: No Current occupational status: employed Cognitive needs: No Hearing needs: No Vision needs: No Questionnaire PHQ-9 Over the last 2 weeks, how often have you been bothered by any of the following problems? 1. Little interest or pleasure in doing things: not at all 2. Feeling down, depressed, or hopeless: not at all 3. Trouble falling or staying asleep, or sleeping too much: not at all 4. Feeling tired or having little energy: not at all 5. Poor appetite or overeating: not at all 6. Feeling bad about yourself - or that you are a failure or have let yourself or your family down: not at all 7. Trouble concentrating on things, such as reading the newspaper or watching television: not at all 8. Moving or speaking so slowly that other people could have noticed. Or the opposite - being so fidgety or restless that you have been moving around a lot more than usual: not at all 9. Thoughts that you would be better off or of hurting yourself in some way: not at all Total score: 0 Depression Screening Interpretation: Negative Depression Screening Done: Yes 20869 - PHQ-9 Billing: Yes Source: Developed by Drs. Tito Encinas, Mayte Pierson, Valdemar Garcia and colleagues, with an educational piedad from [employer]. Thrive Questionnaire Date Thrive assessed: 10/22/24 I am a: Patient What is your living situation today?: I have a steady place to live Within the past 12 months, did the food you bought not last and you didn't have the money to get more?: Never true Within the past 12 months, did you worry whether your food would run out before you got money to buy more?: Never true Do you have trouble paying for medicines?: No Do you have trouble getting transportation to medical appointments?: No Do you have trouble paying your heating and electricity bill?: No Do you have trouble taking care of your child, family member or friend?: No Do you have trouble with day-to-day activities such as bathing, preparing meals, shopping, managing finances, etc.?: No Are you currently unemployed and looking for a job?: No Are you interested in more education?: No Please select the resources that you would like help with: None Currently or been in a relationship where the following occur: No concerns reported THRIVE Score: 0 AUDIT C Alcohol Use Questionnaire (AUDIT-C) 1. How often do you have a drink containing alcohol?: Never 3. How often do you have six or more drinks on one occasion?: Never Total Score: 0 Score Reviewed/Action Taken: Yes AMELIE-7 AMB Questionnaire AMELIE-7 Date AMELIE - 7 assessed: 10/22/24 Feeling nervous, anxious, or on edge: 0 = Not at all Not being able to stop or control worryin = Not at all Worrying too much about different things: 0 = Not at all Trouble relaxin = Not at all Being so restless that it is hard to sit still: 0 = Not at all Becoming easily annoyed or irritable: 0 = Not at all Feeling afraid as if something awful might happen: 0 = Not at all Total AMELIE-7 score (0-4 normal; 5-9 mild; 10-14 moderate; 15-21 severe): 0 Source: Developed by Drs. Tito Encinas, Mayte Pierson, Valdemar Garcia and colleagues, with an educational piedad from [employer]. AMELIE-7 Assessment Billing AMELIE-7 Assessment Tool: AMELIE-7 Assessment 62652 Physical exam (Primary Care) Vital Signs: Last Vital Signs Temp 97.4 F 10/22/24 09:02 Pulse 65 10/22/24 09:02 BP 118/86 10/22/24 09:02 Pulse Ox 100 10/22/24 09:02 Oxygen Delivery Method Room Air 10/22/24 09:02 BMI result Body Mass Index 27.1 Tobacco/Smoking Status: Tobacco use Status Tobacco use date assessed 10/22/24 10/22/24 09:04 Patient Tobacco Use Status Former Tobacco user (2020) 10/22/24 09:04 Tobacco use type Cigarette 10/22/24 09:04 e-Cigarette/Vaping Use Never Used 10/22/24 09:04 PHQ-9: PHQ-9 Score PHQ-9: Total score 0 10/22/24 09:15 Depression Screening Interpretation: Negative Thrive Assessment: Date of Thrive Assessment Date Thrive assessed 10/22/24 10/22/24 09:04 Currently or been in a relationship where the following occur: No concerns reported Coding Level of Care Code Est Pt Level 3 (01398) Diagnoses Nasal congestion R09.81 Recurrent sinusitis J32.9 Environmental allergies Z91.09 Postnasal drip R09.82 Difficulty sleeping G47.9 Additional Codes AMELIE-7 Assessment Billing - AMELIE-7 Assessment Tool: AMELIE-7 Assessment 29708 ([id number]) PHQ-9 - 43466 - PHQ-9 Billing: Yes ([id number]) Assessment & Plan Assessment & Plan (1) Nasal congestion: Code(s): R09.81 - Nasal congestion Category: Medical (2) Recurrent sinusitis: Code(s): J32.9 - Chronic sinusitis, unspecified Category: Medical (3) Environmental allergies: Code(s): Z91.09 - Other allergy status, other than to drugs and biological substances Category: Medical (4) Postnasal drip: Code(s): R09.82 - Postnasal drip Category: Medical (5) Difficulty sleeping: Code(s): G47.9 - Sleep disorder, unspecified Category: Medical Plan Patient is a 29-year-old female came in today to talk about allergies Patient has a history of recurrent sinusitis Currently having severe nasal congestion which is causing difficulty sleeping at night Patient has tried using nasal spray [id number] which has not helped however does not know the name but tells me that it is a steroid nasal spray Complaining of postnasal drip and irritated cough as well She is taking long-acting antihistamine [id number]-[id number] which also has not resolved the symptoms I am starting her on montelukast Azelastine nasal sprays sent to be used 2 times a day she may continue with Flonase nasal spray as well We will book the appointment with the allergy immunology Follow-up telephone visit in 1 week Problem List - Allergic Rhinitis - Recurrent Sinusitis - allergies - difficulty sleeping at night - postnasal drip Patient Instructions - Continue with the prescribed medications, including the usage of montelukast and the new nasal spray. - Take the new nasal spray two times a day as directed. - You may continue using Flonase . - Expect a follow-up call to check on symptoms and confirm appointment setting with the pmp. - Contact the office if there are any issues obtaining medications. - allergy immunology referral placed Orders: Referrals Allergy & Immunology Referral J32.9 - Chronic sinusitis, unspecified, R09.81 - Nasal congestion, Z91.09 - Other allergy status, other than to drugs and biological substances Medications: New montelukast 10 mg PO DAILY 30 tabs 0RF azelastine administer into each nostril 1 spray intranasal BID 30 mL 0RF
--- OUTSIDE RECORDS SUMMARY | 2024-10-22 09:14 | XMS_ITS | Encounter Summary ---
Author Organization [facility] Address [address] [place] [address] Care Team Providers Care Chemical Checker Name Role Phone Shauna Beavers MD Primary Care Provider [phone] Pcp, No Primary Care Provider Unavailabl e Encounter Details Date Type Department Care Team (Late st Contact Info) Description 06/21/2015 Scanned Document [facility] [address] [place] [id number] Provider, Generic Social History Tobacco Use Types Packs/Day Years Used Date Smoking Tobacco: Every Day Cigarettes 0.5 4 Alcohol Use Standard Drinks/Week Comments Not Asked 0 (1 standard drink = 0.6 oz pur e alcohol) social use Sex and Gender Information Value Date Recorded Sex Assigned at Not on file Gender Identity Not on file Sexual Orientation Not on file documented as of this encounter Plan of Treatment Not on file documented as of this encounter Procedures Procedure Name Priority Date/Time Associated Diagnosis Comments XRAY EXTERNAL RESULT 06/21/2015 LAB RESULT 06/20/2015 documented in this encounter Results * XRAY EXTERNAL RESULT (06/21/2015) Anatomical Region Laterality Modality Computed Radiogr aphy Narrative 12/15/2015 11:02 AM EDT Ordered by an unspecified provider. Generic Provider IMG DIAGNOSTIC IMAGI NG ORDERABLES * LAB RESULT (06/20/2015) Narrative 06/20/2015 Ordered by an unspecified provider. Generic Provider HX AMB PROCEDURES documented in this encounter Visit Diagnoses Not on filedocumented in this encounter Care Teams Chemical Checker Relationship Specialty Start Date End Date Shauna Beavers MD [address] [facility] [address] [place] [address] PCP - General Internal Medicine 05/23/15 11/16/19 Pcp, No PCP - General General Medicine 11/17/19 documented as of this encounter
--- OUTSIDE RECORDS SUMMARY | 2024-10-22 09:14 | XMS_ITS | Encounter Summary ---
Author Organization [facility] Address [address] [place] [address] Care Team Providers Care Cable Wirer Name Role Phone Shauna Beavers MD Primary Care Provider [phone] Pcp, No Primary Care Provider Unavailabl e Encounter Details Date Type Department Care Team (Late st Contact Info) Description 02/06/2016 Scanned Document [address] [id number] Provider, Generic Social History Tobacco Use Types Packs/Day Years Used Date Smoking Tobacco: Every Day Cigarettes 0.5 4 Smokeless Tobacco: Never Alcohol Use Standard Drinks/Week Comments Yes 3 (1 standard drink = 0.6 oz pur e alcohol) social use Sex and Gender Information Value Date Recorded Sex Assigned at Not on file Gender Identity Not on file Sexual Orientation Not on file documented as of this encounter Plan of Treatment Not on file documented as of this encounter Visit Diagnoses Not on filedocumented in this encounter Care Teams Cable Wirer Relationship Specialty Start Date End Date Shauna Beavers MD [address] [place] [address] [address] [place] [address] PCP - General Internal Medicine 05/23/15 11/16/19 Pcp, No PCP - General General Medicine 11/17/19 documented as of this encounter
--- OUTSIDE RECORDS SUMMARY | 2024-10-22 09:14 | XMS_ITS | Encounter Summary ---
Author Organization [facility] Address [address] [place] [address] Care Team Providers Care Groundman/Lineman Name Role Phone Shauna Beavers MD Primary Care Provider [phone] Pcp, No Primary Care Provider Unavailabl e Encounter Details Date Type Department Care Team (Late st Contact Info) Description 10/11/2015 Scanned Document [facility] [address] [place] [address] Provider, Generic Social History Tobacco Use Types [...] on filedocumented in this encounter Care Teams Groundman/Lineman Relationship Specialty Start Date End Date Shauna Beavers MD 100 [facility] [address] [place] [address] PCP - General Internal Medicine 05/23/15 11/16/19 Pcp, No PCP - General General Medicine 11/17/19 documented as of this encounter
--- OUTSIDE RECORDS SUMMARY | 2024-10-22 09:14 | XMS_ITS | Clinical Summary ---
Author Organization [facility] Address [address] [place] [address] Care Team Providers Care Transistor Tester Name Role Phone Pcp, No Primary Care Provider Unavailabl e Allergies No known active allergies Medications Medication Sig Dispensed Refills Start Date End Date Status 10/04 1-20 MG-MCG per tablet 11/27/2016 Active Active Problems Problem Noted Date Diagnosed Date Anxiety state 09/02/2014 Allergic rhinitis 01/08/2014 Resolved Problems Problem Noted Date Diagnosed Date Resolved Date Dysuria 08/29/2016 06/25/2018 Abdominal pain, epigastric 11/29/2014 0 04/02/2016 Unspecified disorder of mens truation and other abnormal bleeding from female genital tract 09/02/2014 06/25/2018 Anemia 09/02/2014 05/14/2016 Pain in joint, multiple sites 09/02/2014 04/02/2016 Other malaise and fatigue 09/02/2014 Irregular menstrual cycle 09/02/2014 Leukocytopenia 09/02/2014 05/14/2016 Abdominal pain 09/02/2014 04/02/2016 Acute bronchitis 03/08/2014 04/02/2016 Immunizations Name Administration Dates Next Due Influenza Inactivated/Split Preservative Free IM 09/17/2019,06/25/2018,05/14/2016 Meningococcal MCV4O (Menveo) 05/14/2017 Tdap 05/14/2017 Family History * Patient is adopted Medical History Relation Name Comments No Known Problems Father No Known Problems Mother Relation Name Status Comments Father Alive Mother Alive Social History Tobacco Use Types Packs/Day Years Used Date Smoking Tobacco: Every Day Cigarettes 0.5 4 Smokeless Tobacco: Current Chew Tobacco Cessation:Ready to Q uit: Yes Alcohol Use Standard Drinks/Week Comments Yes 3 (1 standard drink = 0.6 oz pur e alcohol) social use Sex and Gender Information Value Date Recorded Sex Assigned at Not on file Gender Identity Not on file Sexual Orientation Not on file Last Filed Vital Signs Vital Sign Reading Time Taken Comments Blood Pressure 120/68 09/17/2019 8:10 AM EST Pulse 68 09/17/2019 8:10 AM EST Temperature 36.6 ??C (97.9 ??F) 09/17/2019 8:10 AM ES T Respiratory Rate 16 09/17/2019 8:10 AM EST Oxygen Saturation 98% 09/17/2019 8:10 AM EST Inhaled Oxygen Concentration - - Weight 64.9 kg (143 lb) 09/17/2019 8:10 AM EST Height 156.2 cm (5' 1.5 ) 09/17/2019 8:10 AM EST Body Mass Index 26.58 09/17/2019 8:10 AM EST Plan of Treatment Health Maintenance Due Date Last Done Comments Hepatitis C Virus Screening 1994 Hepatitis B Vaccines (1 of 3 - 19+ 3-dose series) 2013 Pneumococcal Vaccine: Pediatric (0-5 Years) and At-Risk Patients (6 to 49 Years) (1 of 2 - PCV) 2013 Pap Smear (Ages 21-65) 2015 Influenza Vaccine 04/15/2024 09/17/2019, 06/25/2018, 05/14/2016 COVID-19 Vaccine (1 - 2023-2 5 season) 2024 DTaP/Tdap/Td Vaccines (2 - T d or Tdap) 05/14/2027 05/14/2017 HIV Screening Completed 08/21/2012 HPV Vaccines Aged Out No longer eligi ble based on patient's age to complete this topic Procedures Procedure Name Priority Date/Time Associated Diagnosis Comments HXAMB HIV 12 AGAB CMIA REFLEX HIV 12 WESTERN BLOT Routine 08/21/2012 2:20 PM EST from Last 3 Months or Most Recently Relevant to Health Maintenance Results * HIV 12 Ag/Ab CMIA Reflex HIV 12 Western Blot (08/21/2012 2:20 PM EST) HIV 1/2 Ag/Ab CMIA NEGATIVE NEGATIVE ALLSCRIPTS CONVERSION Comment: RESULTS SHOW NO EVIDENCE OF INFECTION BY HIV 1/2. IF CLINICALLY INDICATED, REPEAT CMIA OR TEST BY NUCLEIC ACID AMPLIFICATION. 08/21/2012 2:20 PM EST Shauna Beavers MD HX LAB ALLSCRIPTS CONVERSION from Last 3 Months or Most Recently Relevant to Health Maintenance Care Teams Transistor Tester Relationship Specialty Start Date End Date Pcp, No PCP - General General Medicine 11/17/19
--- OUTSIDE RECORDS SUMMARY | 2024-10-22 09:14 | XMS_ITS | Encounter Summary ---
Author Organization [facility] Address [address] [place] [address] Care Team Providers Care Manufacturing Recruiter Name Role Phone Shauna Beavers MD Primary Care Provider [phone] Pcp, No Primary Care Provider Unavailabl e Encounter Details Date Type Department Care Team (Late st Contact Info) Description 12/25/2015 Scanned Document [facility] 10 [address] [facility] [address] [place] [address] Provider, Generic Social History Tobacco Use [...] Procedure Name Priority Date/Time Associated Diagnosis Comments IMAGING GASTROINTESTINAL 01/23/2016 documented in this encounter Results * IMAGING GASTROINTESTINAL (01/23/2016) Anatomical Region Laterality Modality Other Narrative 02/16/2016 12:53 AM EDT Ordered by an unspecified provider. Generic Provider IMG LEGACY PROCEDURE S documented in this encounter Visit Diagnoses Not on filedocumented in this encounter Care Teams Manufacturing Recruiter Relationship Specialty Start Date End Date Shauna Beavers MD 100 [facility] [address] [place], [place] [phone] PCP - General Internal Medicine 05/23/15 11/16/19 Pcp, No PCP - General General Medicine 11/17/19 documented as of this encounter
--- OUTSIDE RECORDS SUMMARY | 2024-10-22 09:14 | XMS_ITS | Clinical Summary ---
Author Organization [facility] Address [address] [place] [address] Care Team Providers Care Senior Resident Care Director Name Role Phone Unavailable Primary Care Provider Unavailabl e Surgical History Surgery Date Site/Laterality Comments OTHER SURGICAL HISTORY PROCEDURE: DENIES PREVIOUS SURGERY Medical History Medical History Date Comments Patient denies medical problems DX:Patient denies medical problems Anxiety disorder DX:Anxiety diso rder Social History Tobacco Use Types Packs/Day Years Used Date Smoking Tobacco: Former Smokeless Tobacco: Never Alcohol Use Standard Drinks/Week Comments Not Currently 0 (1 standard drink = 0.6 oz pur e alcohol) Sex and Gender Information Value Date Recorded Sex Assigned at Not on file Gender Identity Not on file Sexual Orientation Not on file Obstetrics History Last Filed Vital Signs Vital Sign Reading Time Taken Comments Blood Pressure 138/86 06/21/2022 2:29 PM EDT Pulse 79 06/21/2022 2:29 PM EDT Temperature - - Respiratory Rate - - Oxygen Saturation - - Inhaled Oxygen Concentration - - Weight 74.1 kg (163 lb 6.4 oz) 06/21/2022 2:29 P M EDT Height 152.4 cm (5') 06/21/2022 2:29 PM EDT Body Mass Index 31.91 06/21/2022 2:29 PM EDT Plan of Treatment Health Maintenance Due Date Last Done Comments DTaP,Tdap,and Td Vaccines (1 - Tdap) 2013 Hepatitis B Vaccines (1 of 3 - 19+ 3-dose series) 2013 Depression Screening 08/19/2022 HIV Screening 08/19/2022 Hepatitis C Screening 08/19/2022 Social Influencers of Health Screening 08/19/2022 Cervical Cancer Screening: P ap Smear 03/14/2024 03/14/2021 COVID-19 Vaccine ( - 2023-2 5 season) 2024 Influenza Vaccine (#1) 2024 HIB Vaccines Aged Out No longer eligi ble based on patient's age to complete this topic HPV Vaccines Aged Out No longer eligi ble based on patient's age to complete this topic Hepatitis A Vaccines Aged Out No long er eligible based on patient's age to complete this topic IPV Vaccines Aged Out No longer eligi ble based on patient's age to complete this topic MMR Vaccines Aged Out No longer eligi ble based on patient's age to complete this topic Meningococcal ACWY Vaccine Aged Out N o longer eligible based on patient's age to complete this topic Pneumococcal Vaccine: Pediat rics (0 to 5 Years) and At-Risk Patients (6 to 64 Years) Aged Out No longer eligi ble based on patient's age to complete this topic RSV Immunization Patients Un janay 20 months Aged Out No longer eligible b ased on patient's age to complete this topic Varicella Vaccines Aged Out No longer eligible based on patient's age to complete this topic Procedures Procedure Name Priority Date/Time Associated Diagnosis Comments PAP SMEAR Routine 03/14/2021 from Last 3 Months or Most Recently Relevant to Health Maintenance Results * Pap smear (03/14/2021) 03/14/2021 Narrative HISTORICAL TESTING LAB RESULTING AGENCY - 03/16/2021 8:00 AM EDT [id number] THINPREP PAP, IMAGED: NEGATIVE FOR SQUAMOUS INTRAEPITHELIAL LESION AND MALIGNANCY . LUCA COREAS(ASCP) (CASE ELECTRONICALLY SIGNED 03 15 2021) ADEQUACY: SATISFACTORY ENDOCERVICAL/TRANSFORMATION ZONE COMPONENT ABSENT. SOURCE: THINPREP PAP HPV IF ASCUS, CERVICAL, IMAGED CLINICAL INFORMATION: HPV IF DIAGNOSIS OF ASCUS. HORMONES, PAP HX NEG, LMP 02/13/21. Z12.4 Kathy Edwards CNM LAB CYTOLOGY ORDERAB LES HISTORICAL TESTING LAB RESULTING AGENCY from Last 3 Months or Most Recently Relevant to Health Maintenance
--- OUTSIDE RECORDS SUMMARY | 2024-10-22 09:15 | XMS_ITS | Encounter Summary ---
Author Organization [facility] Address [address] [place] [address] Care Team Providers Care Cannon Fire Direction Specialist Name Role Phone Shauna Beavers MD Primary Care Provider [phone] Pcp, No Primary Care Provider Unavailabl e Encounter Details Date Type Department Care Team (Late st Contact Info) Description 06/11/2019 Scanned Document [facility] 10 [address] [facility] [address] [place] [address] Provider, External, [address] [place] [address] Social History Tobacco Use Types Packs/Day Years [...] on filedocumented in this encounter Care Teams Cannon Fire Direction Specialist Relationship Specialty Start Date End Date Shauna Beavers MD 100 [facility] [address] [place], [place] [phone] PCP - General Internal Medicine 05/23/15 11/16/19 Pcp, No PCP - General General Medicine 11/17/19 documented as of this encounter
--- OUTSIDE RECORDS SUMMARY | 2024-10-22 09:15 | XMS_ITS | Encounter Summary ---
Author Organization Formerly [facility] Address [address] [place] [address] Care Team Providers Care Predictive Maintenance Specialist Name Role Phone Shauna Beavers MD Primary Care Provider [phone] Pcp, No Primary Care Provider Unavailabl e Encounter Details Date Type Department Care Team (Late st Contact Info) Description 05/06/2019 Telephone [facility] [address] [place] [address] [address] Pr[address] RT [address] [place] [address] Social History Tobacco Use Types Packs/Day Years [...] on file documented as of this encounter Miscellaneous Notes * Telephone Encounter - RT Cee - 05/06/2019 9:05 AM EDT Spoke with patient, feeling better.mph documented in this encounter Plan of Treatment Not on file documented as of this encounter Visit Diagnoses Not on filedocumented in this encounter Care Teams Predictive Maintenance Specialist Relationship Specialty Start Date End Date Shauna Beavers MD [address] [place] [address] [address] [place], [place] [phone] PCP - General Internal Medicine 05/23/15 11/16/19 Pcp, No PCP - General General Medicine 11/17/19 documented as of this encounter
--- OUTSIDE RECORDS SUMMARY | 2024-10-22 09:15 | XMS_ITS | Encounter Summary ---
Author Organization [facility] Address [address] [place], [place] [id number] Care Team Providers Care Intake Rn Name Role Phone Shauna Beavers MD Primary Care Provider [phone] Pcp, No Primary Care Provider Unavailabl e Encounter Details Date Type Department Care Team (Late st Contact Info) Description 04/04/2016 Scanned Document [facility] 10 100 [facility] 203 [place] [phone] Shauna Beavers MD 100 [facility] [address] [place] [id number] Social History Tobacco Use Types Packs/Day Years [...] on filedocumented in this encounter Care Teams Intake Rn Relationship Specialty Start Date End Date Shauna Beavers MD 100 [facility] 203 [place], [place] [phone] PCP - General Internal Medicine 05/23/15 11/16/19 Pcp, No PCP - General General Medicine 11/17/19 documented as of this encounter
--- OUTSIDE RECORDS SUMMARY | 2024-10-22 09:16 | XMS_ITS | Encounter Summary ---
Author Organization [facility] Address [address] [place] [address] Care Team Providers Care Manager Strategy Name Role Phone Shauna Beavers MD Primary Care Provider [phone] Encounter Details Date Type Department Care Team (Late st Contact Info) Description 05/03/2019 1:42 PM EDT Hospital Encounter [facility] [address] [place] [address] Gordon Amaya MD [address] [place] [address] Social History Tobacco Use Types Packs/Day Years [...] DESCRIPTION: Technique: PA and lateral views. Comparison: ??03/08/2014. FINDINGS: Lungs and pleura: No evidence of focal consolidation to suggest pneumonia. The pulmonary vasculature is normal. No effusion or pneumothorax. Trachea and bronchi: Unremarkable. Heart, mediastinum, and leeanna: Stable cardiomediastinal silhouette. Soft tissues and bones: No evidence of acute osseous injury. ?? Upper abdomen: Unremarkable. Procedure Note Jeff Meier [...] Tanmay Padgett PA-C IMG DIAGNOSTIC IMAGING ORDERABLES documented in this encounter Visit Diagnoses Not on filedocumented in this encounter Care Teams Manager Strategy Relationship Specialty Start Date End Date Shauna Beavers MD [address] [address] PCP - General Internal Medicine 05/23/15 11/16/19 documented as of this encounter
--- OUTSIDE RECORDS SUMMARY | 2024-10-22 09:16 | XMS_ITS | Encounter Summary ---
Author Organization [facility] Address [address] [place] [address] Care Team Providers Care Voice Intercept Technician Name Role Phone Shauna Beavers MD Primary Care Provider [phone] Pcp, No Primary Care Provider Unavailabl e Encounter Details Date Type Department Care Team (Late st Contact Info) Description 05/15/2017 Scanned Document [facility] 10 100 [facility] 203 [place] [address] Provider, Generic Social History Tobacco [...] on filedocumented in this encounter Care Teams Voice Intercept Technician Relationship Specialty Start Date End Date Shauna Beavers MD 100 [facility] [address] [place] [address] PCP - General Internal Medicine 05/23/15 11/16/19 Pcp, No PCP - General General Medicine 11/17/19 documented as of this encounter
--- OUTSIDE RECORDS SUMMARY | 2024-10-22 09:16 | XMS_ITS | Encounter Summary ---
Author Organization [facility] Address [address] [place], [place] [id number] Care Team Providers Care Roast Master Name Role Phone Shauna Beavers MD Primary Care Provider [phone] Pcp, No Primary Care Provider Unavailabl e Encounter Details Date Type Department Care Team (Late st Contact Info) Description 04/08/2016 Scanned Document [facility] 10 100 [facility] 203 [place] [phone] Shauna Beavers MD 100 [facility] [address] [place] [phone] Social History Tobacco Use Types Packs/Day Years [...] on filedocumented in this encounter Care Teams Roast Master Relationship Specialty Start Date End Date Shauna Beavers MD 100 [facility] 203 [place], [place] [phone] PCP - General Internal Medicine 05/23/15 11/16/19 Pcp, No PCP - General General Medicine 11/17/19 documented as of this encounter
--- OUTSIDE RECORDS SUMMARY | 2024-10-22 09:16 | XMS_ITS | Clinical Summary ---
Author Organization [facility] Address [address] [place] [address] Care Team Providers Care Sizing Machine And Drier Operator Name Role Phone Unavailable Primary Care Provider Unavailabl e Allergies No known active allergies Medications Medication Sig Dispensed Refills Start Date End Date Status levonorgestrel (MIRENA) 20 MCG/24HR IUD 1 each by Intrauterine route once. 0 Active Social History Tobacco Use Types Packs/Day Years Used Date Smoking Tobacco: Never Assessed Sex and Gender Information Value Date Recorded Sex Assigned at Not on file Gender Identity Not on file Sexual Orientation Not on file Last Filed Vital Signs Vital Sign Reading Time Taken Comments Blood Pressure 132/84 02/26/2016 6:03 PM EDT Pulse 81 02/26/2016 6:03 PM EDT Temperature 36.9 ??C (98.5 ??F) 02/26/2016 6:03 PM ED T Respiratory Rate 18 02/26/2016 6:03 PM EDT Oxygen Saturation 100% 02/26/2016 6:03 PM EDT Inhaled Oxygen Concentration - - Weight 61.2 kg (135 lb) 02/26/2016 1:58 PM EDT Height 154.9 cm (5' 1 ) 02/26/2016 1:58 PM EDT Body Mass Index 25.51 02/26/2016 1:58 PM EDT Plan of Treatment Not on file
== END | disposition home or self-care (01) ==
PROVIDERS: PCP Internal Medicine; Visit Provider Internal Medicine

== ENCOUNTER → 2024-10-22 08:56 | Outpatient (BNVA) | payer OTHER, SELFPAY | PROVIDERS: PCP Internal Medicine; Visit Provider Internal Medicine | DX: R09.81 Nasal congestion (principal); J32.9 Chronic sinusitis, unspecified; R09.82 Postnasal drip; G47.9 Sleep disorder, unspecified; Z91.09 Other allergy status, other than to drugs and biological substances | CPT/HCPCS: 96127; 99212 ==

== ENCOUNTER 2025-05-10 11:28 | Outpatient (REF) | payer OTHER, SELFPAY ==
[2025-05-10 13:20] LABS: MANUAL DIFF FLAG NO
[2025-05-10 13:25] LABS: Hematocrit 34.3 % (37.0-47.0); Hemoglobin 12.1 g/dl (12.0-16.0); Imm Gran Abs Auto 0.03 X10*3/uL (0.00-0.03); Imm Gran Pct Auto 0.4 % (0.0-0.4); Lymphocytes Absolute Auto 2.6 X10*3/uL (1.2-4.9); Mean Corpuscular HGB Conc 35.3 g/dl (31.0-35.0); Mean Corpuscular Hemoglobin 31.1 pg (27.0-33.0); Mean Corpuscular Volume 88.2 fL (80.0-98.0); NRBC Abs Auto 0.000 X10*3/uL (0.0-0.012); NRBC Pct Auto 0.0 /100WBC (0.0-0.2); Platelet Count 307 X10*3/uL (160-400); Red Blood Count 3.89 X10*6/uL (4.20-5.50); White Blood Count 8.5 X10*3/uL (4.8-10.8)
[2025-05-10 13:48] LABS: Appearance Urine Clear; Glucose Urine UA Negative (Negative); PH 7.0 (5.0-9.0); Specific Gravity - Urine 1.020 (1.005-1.025); UMIC TRIGGER UACC YES
[2025-05-10 14:16] LABS: Alanine Aminotransferase 13 U/L (0-31); Albumin Level 4.4 g/dL (3.5-5.0); Alkaline Phosphatase 36 U/L (39-117); Anion Gap 12 (12-20); Aspartate Amino Transferase 19 U/L (5-31); Blood Urea Nitrogen 10 mg/dL (9-16); Calcium 9.0 mg/dL (8.4-10.2); Carbon Dioxide 22 mmol/L (22-29); Chloride 107 mmol/L (96-108); Cholesterol 179 mg/dL (<200); Estimated Glomerular Filt Rate > 60; HDL Cholesterol 49 mg/dL (>40); Potassium 3.6 mmol/L (3.3-5.1); Sodium 137 mmol/L (135-145); Total Protein 7.1 g/dL (6.5-8.0); Triglycerides 117 mg/dL (<150)
== END 2025-05-10 11:29 | disposition home or self-care (01) ==
LOC: HO.HMGCLDS 11:28
PROVIDERS: PCP Internal Medicine; Visit Provider Internal Medicine
DX: Z13.9 Encounter for screening, unspecified (principal); Z00.01 Encounter for general adult medical examination with abnormal findings; N63.21 Unspecified lump in the left breast, upper outer quadrant; G43.109 Migraine with aura, not intractable, without status migrainosus
CPT/HCPCS: 36415; 80053; 80061; 81001; 81003; 82306; 84443; 85025

== ENCOUNTER 2025-05-10 11:28 | Outpatient (AMB) | payer OTHER, SELFPAY ==
--- OUTSIDE RECORDS SUMMARY | 2019-05-03 13:42 | XMS_ITS | Encounter Summary ---
Author Organization [facility] Address [address] [place] [address] Care Team Providers Care Field Hand Name Role Phone Shauna Beavers MD Primary Care Provider [phone] Encounter Details Date Type Department Care Team (Late st Contact Info) Description 05/03/2019 1:42 PM EDT Hospital Encounter [facility] [address] [place] [address] Gordon Amaya MD [address] [place] [address] Social History Tobacco Use Types Packs/Day Years Used Date Smoking Tobacco: Every Day Cigarettes 0.5 4 Smokeless Tobacco: Current Chew Alcohol Use Standard Drinks/Week Comments Yes 3 (1 standard drink = 0.6 oz pur e alcohol) social use Comments No Sex and Gender Information Value Date Recorded Sex Assigned at Not on file Legal Sex Female 5:25 PM EDT Gender Identity Not on file Sexual Orientation Not on file documented as of this encounter Plan of Treatment Not on file documented as of this encounter Procedures Procedure Name Priority Date/Time Associated Diagnosis Comments XR CHEST 2 VIEWS STAT 05/03/2019 1:51 PM EDT Cough documented in this encounter Results * XR Chest 2 views (05/03/2019 1:51 PM EDT) Anatomical Region Laterality Modality Chest Computed Radiogr aphy 05/03/2019 1:52 PM EDT Impressions 05/03/2019 1:52 PM EDT No evidence of active cardiopulmonary disease. Narrative 05/03/2019 1:52 PM EDT CHEST X-RAY INDICATION: Cough, Rales at left base, evaluate for pneumonia. DESCRIPTION: Technique: PA and lateral views. Comparison: 03/08/2014. FINDINGS: Lungs and pleura: No evidence of focal consolidation to suggest pneumonia. The pulmonary vasculature is normal. No effusion or pneumothorax. Trachea and bronchi: Unremarkable. Heart, mediastinum, and leeanna: Stable cardiomediastinal silhouette. Soft tissues and bones: No evidence of acute osseous injury. Upper abdomen: Unremarkable. Procedure Note Jeff Meier MD - 05/03/2019 CHEST X-RAY INDICATION: Cough, Rales at left base, evaluate for pneumonia. DESCRIPTION: Technique: PA and lateral views. Comparison: 03/08/2014. FINDINGS: Lungs and pleura: No evidence of focal consolidation to suggest pneumonia.The pulmonary vasculature is normal. No effusion or pneumothorax. Trachea and bronchi: Unremarkable. Heart, mediastinum, and leeanna: Stable cardiomediastinal silhouette. Soft tissues and bones: No evidence of acute osseous injury. Upper abdomen: Unremarkable. IMPRESSION: No evidence of active cardiopulmonary disease. Tanmay Padgett PA-C IMG DIAGNOSTIC IMAGING ORDERABLES Final Result documented in this encounter Visit Diagnoses Not on filedocumented in this encounter Care Teams Field Hand Relationship Specialty Start Date End Date Shauna Beavers MD [address] [facility] [address] [place] [address] PCP - General Internal Medicine 05/23/15 11/16/19 documented as of this encounter
[2025-05-10 11:32] VITALS: BP 118/72; PULSE 71; O2SAT 98; BMI 25.1
--- NOTE | 2025-05-10 11:32 | A.OFFPC_ITS ---
Vital Signs 05/10/25 11:32 Height 5 ft 1 in Weight 133 lb BMI 25.1 BP 118/72 Blood Pressure Location Lt brachial Position Sitting Pulse 71 Pulse Source Pulse Oximeter Pulse Oximetry (%) 98 Oxygen Delivery Method Room Air Intake Visit Reasons: PE Allergies No Known Allergies Allergy (Verified 05/10/25 11:33) Medication List - Last Reconciled 05/10/25 by oRger Dill MD azelastine 1 spray intranasal BID norgestimate-ethinyl estradiol 0.25-0.035 mg 1 tab PO DAILY Tobacco use date assessed: 10/22/24 Dental Screening Dental Screen Date: 10/22/24 HPI PE HPI Details History of Present Illness The patient is a 29-year-old female presenting for physical examination also has been having migraines and onto have left breast lump today on examination Migraine: - The patient reports experiencing migra jess approximately once a week. - Migraines characterized by visual symp toms, including one-sided blurriness and rainbow-like patterns. - Visual disturbances resolve within an hour, followed by severe headaches. - No prior history of migraines. - No known family history due to being a dopted. - Sleep improves symptoms; the patient r eports adequate sleep. - The patient does not identify specific triggers but notes occurrence upon waking and in the evening. - Concern expressed about migraines affe cting work performance, especially in the emergency room setting. Breast Lump: - Lump palpable during examination. Le ft-sided - No previous history of breast lumps or breast cancer. Medical History: - No known family medical history due to being adopted. - Previously identified palpable thyroid but ruled out after ultrasound. 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 - Reports taking control and acces sing services through [facility]. Health Maintenance - Recommended flu vaccine in the fall. - Discussed significance of regular OB-G YN visits and Pap smears due to control use. - Blood work ordered but not completed i march; fasting labs were discussed. Diagnostic results - Ultrasound of thyroid ruled out concer ns within the past year. Patient Instructions - Schedule regular OB-SHOP SUPERINTENDENT visits and hav e a Pap smear. - Contact [facility] [facility] fo r breast lump evaluation. - Continue monitoring and report changes in breast lump. - Expect telemedicine follow-up in three weeks for migraine management assessment. - Complete fasting blood work when able. - Keep track of migraine frequency and t riggers, if possible. - Maintain adequate sleep for migraine m anagement. Follow-up physical exam 1 year and p.r.n. Review of Systems - General: No fever no chills - Neurological: no dizziness - Ear nose throat: No sore throat no hearing difficulty no ear pain - Cardiovascular: No syncope, no chest pain, no palpitations - Gastrointestinal: No nausea vomiting or diarrhea - Endocrine: No polyuria polydipsia no heat intolerance - Genitourinary: No dysuria - Skin: No new complaints Physical Exam General: Cooperative, healthy appearing, comfortable, no acute distress Orientation: Patient oriented x3 Head: Normal to inspection Ears: Within normal limit visually Nose: Normal external nose present Face and sinus: Normal facial exam Eyes: Appearance normal, extraocular movement intact pupils reactive Neck: Thyroid is a little bit palpable Respiratory: Normal respiratory effort and able to speak in complete sentences. Clear to auscultation, no stridor Cardiovascular: S1 and S2 RRR Breast: Lump felt left around 01:00 nontender GI: Normal to inspection. Soft to palpation and nontender Skin: Turgor normal, no acute findings Neuro: Patient oriented x3, motor sensory intact, balance intact, tandem pass Extremities: Normal to inspection [facility] Medical History Tobacco abuse Encounter for general adult medical examination with abnormal findings History of alcohol abuse Epigastric abdominal pain Anxiety, generalized Surgical History No pertinent past surgical history Family History Father Unknown family medical history Mother Unknown family medical history Social History Housing: House Alcohol intake: never Patient Tobacco Use Status: Former Tobacco user (2019) Tobacco use type: Cigarette Years Smoked: 10 years e-Cigarette/Vaping Use: Never Used service: No Current occupational status: employed Cognitive needs: No Hearing needs: No Vision needs: No Questionnaire Thrive Questionnaire Date Thrive assessed: 10/08/24 I am a: Patient What is your living situation today?: I have a steady place to live Within the past 12 months, did the food you bought not last and you didn't have the money to get more?: Never true Within the past 12 months, did you worry whether your food would run out before you got money to buy more?: Never true Do you have trouble paying for medicines?: No Do you have trouble getting transportation to medical appointments?: No Do you have trouble paying your heating and electricity bill?: No Do you have trouble taking care of your child, family member or friend?: No Do you have trouble with day-to-day activities such as bathing, preparing meals, shopping, managing finances, etc.?: No Are you currently unemployed and looking for a job?: No Are you interested in more education?: No Please select the resources that you would like help with: None Currently or been in a relationship where the following occur: No concerns reported THRIVE Score: 0 AMELIE-7 AMB Questionnaire AMELIE-7 Date AMELIE - 7 assessed: 10/22/24 Source: Developed by Drs. Tito Encinas, Mayte Pierson, Valdemar Garcia and colleagues, with an educational piedad from [employer]. Physical exam (Primary Care) Vital Signs: Last Vital Signs Pulse 71 05/10/25 11:32 BP 118/72 05/10/25 11:32 Pulse Ox 98 05/10/25 11:32 Oxygen Delivery Method Room Air 05/10/25 11:32 BMI result Body Mass Index 25.1 Tobacco/Smoking Status: Tobacco use Status Tobacco use date assessed 10/22/24 05/10/25 11:36 Patient Tobacco Use Status Former Tobacco user (2020) 05/10/25 11:36 Tobacco use type Cigarette 05/10/25 11:36 e-Cigarette/Vaping Use Never Used 05/10/25 11:36 Thrive Assessment: Date of Thrive Assessment Date Thrive assessed 10/08/24 05/10/25 11:36 Currently or been in a relationship where the following occur: No concerns reported Coding Level of Care Code Est Pt Level 3 (02939) Est Pt Prev Care 18-39y(91518) Diagnoses Encounter for general adult medical examination with abnormal findings Z00.01 Breast lump on left side at 1 o'clock position N63.21 Migraine with aura and without status migrainosus, not intractable G43.109 Status migrainosus presence: without status migrainosus Intractability: not intractable Assessment & Plan Assessment & Plan (1) Encounter for general adult medical examination with abnormal findings: Code(s): Z00.01 - Encounter for general adult medical examination with abnormal findings Category: Medical (2) Breast lump on left side at 1 o'clock position: Code(s): N63.21 - Unspecified lump in the left breast, upper outer quadrant Category: Medical (3) Migraine headache with aura: Code(s): G43.109 - Migraine with aura, not intractable, without status migrainosus Category: Medical Qualifiers: Status migrainosus presence: without status migrainosus Intractability: not intractable Qualified Code(s): G43.109 - Migraine with aura, not intractable, without status migrainosus Plan History of Present Illness The patient is a 29-year-old female presenting for physical examination also has been having migraines and onto have left breast lump today on examination Migraine: - The patient reports experiencing migraines approximately once a week. - Migraines characterized by visual symptoms, including one-sided blurriness and rainbow-like patterns. - Visual disturbances resolve within an hour, followed by severe headaches. - No prior history of migraines. - No known family history due to being adopted. - Sleep improves symptoms; the patient reports adequate sleep. - The patient does not identify specific triggers but notes occurrence upon waking and in the evening. - Concern expressed about migraines affecting work performance, especially in the emergency room setting. Breast Lump: - Lump palpable during examination. Left-sided - No previous history of breast lumps or breast cancer. Medical History: - No known family medical history due to being adopted. - Previously identified palpable thyroid but ruled out after ultrasound. 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 - Reports taking control and accessing services through [facility]. Health Maintenance - Recommended flu vaccine in the fall. - Discussed significance of regular OB-SHOP SUPERINTENDENT visits and Pap smears due to control use. - Blood work ordered but not completed in March; fasting labs were discussed. Diagnostic results - Ultrasound of thyroid ruled out concerns within the past year. Patient Instructions - Schedule regular OB-SHOP SUPERINTENDENT visits and have a Pap smear. - Contact [facility] for breast lump evaluation. - Continue monitoring and report changes in breast lump. - Expect telemedicine follow-up in three weeks for migraine management assessment. Start amitriptyline 10 mg at night - Complete fasting blood work when able. - Keep track of migraine frequency and triggers, if possible. - Maintain adequate sleep for migraine management. Follow-up physical exam 1 year and p.r.n. Orders: Orders US breast LT complete Today N63.21 - Unspecified lump in the left breast, upper outer quadrant MM tomosynthesis diagnostic LT Today N63.21 - Unspecified lump in the left breast, upper outer quadrant Referrals GUARD ENTRANCE REGISTRAR Referral Z01.419 - Encounter for gynecological examination (general) ( routine) without abnormal findings Medications: New amitriptyline 10 mg PO BEDTIME 30 tabs 0RF
--- OUTSIDE RECORDS SUMMARY | 2025-05-10 12:24 | XMS_ITS | Encounter Summary ---
Author Organization [facility] Address [address] [place] [address] Care Team Providers Care Chief Growth Officer Name Role Phone Shauna Beavers MD Primary Care Provider [phone] Pcp, No Primary Care Provider Unavailabl e Encounter Details Date Type Department Care Team (Late st Contact Info) Description 06/21/2015 Scanned Document [facility] [address] [place] [address] Provider, Generic Social History Tobacco Use [...] AM EDT Ordered by an unspecified provider. us Generic Provider IMG DIAGNOSTIC IMAGING ORDERABL ES Final Result * LAB RESULT (06/20/2015) Narrative 06/20/2015 Ordered by an unspecified provider. Generic Provider HX AMB PROCEDURES Final Result documented in this encounter Visit Diagnoses Not on filedocumented in this encounter Care Teams Chief Growth Officer Relationship Specialty Start Date End Date Shauna Beavers MD 100 [facility] 203 [place] [address] PCP - General Internal Medicine 05/23/15 11/16/19 Pcp, No PCP - General General Medicine 11/17/19 documented as of this encounter
--- OUTSIDE RECORDS SUMMARY | 2025-05-10 12:24 | XMS_ITS | Encounter Summary ---
Author Organization [facility] Address [address] [place] [address] Care Team Providers Care Casting Inspector Name Role Phone Shauna Beavers MD Primary Care Provider [phone] Pcp, No Primary Care Provider Unavailabl e Encounter Details Date Type Department Care Team (Late st Contact Info) Description 05/15/2017 Scanned Document [facility] 10 100 [facility] 203 [place] [address] Provider, Generic Social History Tobacco [...] on filedocumented in this encounter Care Teams Casting Inspector Relationship Specialty Start Date End Date Shauna Beavers MD [address] [facility] [address] [place] [address] PCP - General Internal Medicine 05/23/15 11/16/19 Pcp, No PCP - General General Medicine 11/17/19 documented as of this encounter
--- OUTSIDE RECORDS SUMMARY | 2025-05-10 12:24 | XMS_ITS | Clinical Summary ---
Author Organization [facility] Address [address] [place] [address] Care Team Providers Care Animal Damage Control Agent Name Role Phone Pcp, No Primary Care Provider Unavailabl e Allergies No known active allergies Medications 10/04 1-20 MG-MCG per tablet 11/27/2016 A ctive Active Problems Problem Noted Date Diagnosed Date [...] 09/02/2014 04/02/2016 Acute bronchitis 03/08/2014 04/02/2016 Immunizations Immunization Administration Dates Next Due Influenza Inactivated/Split Preservative [...] 68 09/17/2019 8:10 AM EST Temperature 36.6 C (97.9 F) 09/17/2019 8:10 AM EST Respiratory Rate 16 09/17/2019 8:10 AM EST [...] - 19+ 3-dose series) 2013 Pneumococcal Vaccine: Pediat cherise (0-5 Years) and At-Risk Patients (6 to 49 Years) (1 of 2 - PCV) 2013 Pap Smear (Ages 21-65) 2015 HPV Vaccines (1 - 3-dose SCDM series) 2021 COVID-19 Vaccine (1 - 2023- season) 2024 Influenza Vaccine 04/15/2025 09/17/2019, , 05/14/2016 DTaP/Tdap/Td Vaccines (2 - T d or Tdap) 05/14/2027 05/14/2017 HIV Screening Completed 08/21/2012 Procedures Procedure Name Priority Date/Time Associated Diagnosis [...] NUCLEIC ACID AMPLIFICATION. 08/21/2012 2:20 PM EST us Shauna Beavers MD HX LAB Final Result [facility] CONVERSION from Last 3 Months or Most Recently Relevant to Health Maintenance Insurance [facility] Care Teams Animal Damage Control Agent Relationship Specialty Start Date End Date Pcp, No PCP - General General Medicine 11/17/19
--- OUTSIDE RECORDS SUMMARY | 2025-05-10 12:24 | XMS_ITS | Encounter Summary ---
Author Organization [facility] Address [address] [place] [address] Care Team Providers Care Assistant Strength Coach Name Role Phone Shauna Beavers MD Primary Care Provider [phone] Pcp, No Primary Care Provider Unavailabl e Encounter Details Date Type Department Care Team (Late st Contact Info) Description 06/11/2019 Scanned Document [facility] 10 100 [facility] 203 [place] [phone] Provider, Aileen, [address] [place] [id number] Social History Tobacco Use Types Packs/Day Years [...] on filedocumented in this encounter Care Teams Assistant Strength Coach Relationship Specialty Start Date End Date Shauna Beavers MD 100 [facility] [address] [place], [place] [phone] PCP - General Internal Medicine 05/23/15 11/16/19 Pcp, No PCP - General General Medicine 11/17/19 documented as of this encounter
--- OUTSIDE RECORDS SUMMARY | 2025-05-10 12:24 | XMS_ITS | Encounter Summary ---
Author Organization [facility] Address [address] [place] [address] Care Team Providers Care Zipper Setter Lockstitch Name Role Phone Shauna Beavers MD Primary Care Provider [phone] Pcp, No Primary Care Provider Unavailabl e Encounter Details Date Type Department Care Team (Late st Contact Info) Description 10/11/2015 Scanned Document [address] [address] Provider, Generic Social History Tobacco Use [...] on filedocumented in this encounter Care Teams Zipper Setter Lockstitch Relationship Specialty Start Date End Date Shauna Beavers MD [address] [place] [address] [address] [place] [address] PCP - General Internal Medicine 05/23/15 11/16/19 Pcp, No PCP - General General Medicine 11/17/19 documented as of this encounter
--- OUTSIDE RECORDS SUMMARY | 2025-05-10 12:24 | XMS_ITS | Clinical Summary ---
Author Organization [facility] Address [address] [place] [address] Care Team Providers Care Underwriting Clerks Supervisor Name Role Phone Unavailable Primary Care Provider [...] drink = 0.6 oz pur e alcohol) Comments Unknown Sex and Gender Information Value Date Recorded Sex Assigned at Not on file Legal Sex Female 10:46 AM EST Gender Identity Not on file Sexual Orientation [...] of 3 - 19+ 3-dose series) 2013 HIV Screening 08/19/2022 Hepatitis C Screening 08/19/2022 Social Influencers of Health Screening 08/19/2022 Cervical Cancer Screening: P ap Smear 03/14/2024 03/14/2021 COVID-19 Vaccine ( - 2023-2 5 season) 2024 Depression Screening 09/15/2024 Influenza Vaccine (#1) 2025 HIB Vaccines Aged Out No longer eligi [...] patient's age to complete this topic Meningococcal B Vaccine Aged Out No l onger eligible based on patient's age to complete this topic Pneumococcal Vaccine: Pediat rics (0 to 5 Years) and At-Risk Patients (6 to 49 Years) Aged Out No longer eligi ble [...] RESULTING AGENCY - 03/16/2021 8:00 AM EDT [id number] THINPREP PAP, IMAGED: NEGATIVE FOR SQUAMOUS INTRAEPITHELIAL LESION AND MALIGNANCY . LUCA COREAS(ASCP) (CASE ELECTRONICALLY SIGNED 03 15 2021) ADEQUACY: SATISFACTORY ENDOCERVICAL/TRANSFORMATION ZONE COMPONENT ABSENT. SOURCE: THINPREP PAP HPV IF ASCUS, CERVICAL, IMAGED CLINICAL INFORMATION: HPV IF DIAGNOSIS OF ASCUS. HORMONES, PAP HX NEG, LMP 02/13/21. Z12.4 Katyh Edwards CNM LAB CYTOLOGY ORDERABLES Nicole goins Result HISTORICAL TESTING LAB RESULTING AGENCY from Last 3 Months or Most Recently Relevant to Health Maintenance
--- OUTSIDE RECORDS SUMMARY | 2025-05-10 12:24 | XMS_ITS | Encounter Summary ---
Author Organization [facility] Address [address] [place] [address] Care Team Providers Care Skiver Counter Name Role Phone Shauna Beavers MD Primary Care Provider [phone] Pcp, No Primary Care Provider Unavailabl e Encounter Details Date Type Department Care Team (Late st Contact Info) Description 02/06/2016 Scanned Document [address] [phone] Provider, Generic Social History Tobacco Use Types [...] on filedocumented in this encounter Care Teams Skiver Counter Relationship Specialty Start Date End Date Shauna Beavers MD [address] [place] [address] [address] [place] [address] PCP - General Internal Medicine 05/23/15 11/16/19 Pcp, No PCP - General General Medicine 11/17/19 documented as of this encounter
--- OUTSIDE RECORDS SUMMARY | 2025-05-10 12:24 | XMS_ITS | Clinical Summary ---
Author Organization [facility] Address [address] [place] [address] Care Team Providers Care First Assist Name Role Phone Unavailable Primary Care Provider [...] 81 02/26/2016 6:03 PM EDT Temperature 36.9 C (98.5 F) 02/26/2016 6:03 PM EDT Respiratory Rate 18 02/26/2016 6:03 PM EDT Oxygen Saturation 100% 02/26/2016 6:03 PM EDT Inhaled Oxygen Concentration - - Weight 61.2 kg (135 lb) 02/26/2016 1:58 PM EDT Height 154.9 cm (5' 1 ) 02/26/2016 1:58 PM EDT Body Mass Index 25.51 02/26/2016 1:58 PM EDT Plan of Treatment Not on file
--- OUTSIDE RECORDS SUMMARY | 2025-05-10 12:24 | XMS_ITS | Encounter Summary ---
Author Organization [facility] Address [address] [place] [address] Care Team Providers Care Feed Research Aide Name Role Phone Shauna Beavers MD Primary Care Provider [phone] Pcp, No Primary Care Provider Unavailabl e Encounter Details Date Type Department Care Team ([facility] st Contact Info) Description 05/06/2019 Telephone [facility] [place] [address] [place] [address] Radha Prather RT [address] [place] [address] Social History Tobacco Use Types Packs/Day Years [...] on filedocumented in this encounter Care Teams Feed Research Aide Relationship Specialty Start Date End Date Shauna Beavers MD 100 [facility] [address] [place], [place] [phone] PCP - General Internal Medicine 05/23/15 11/16/19 Pcp, No PCP - General General Medicine 11/17/19 documented as of this encounter
--- OUTSIDE RECORDS SUMMARY | 2025-05-10 12:24 | XMS_ITS | Encounter Summary ---
Author Organization [facility] Address [address] [place], [place] [id number] Care Team Providers Care Microsoft Net Developer Name Role Phone Shauna Beavers MD Primary Care Provider [phone] Pcp, No Primary Care Provider Unavailabl e Encounter Details Date Type Department Care Team (Late st Contact Info) Description 04/08/2016 Scanned Document [facility] 10 100 [facility] [address] [place] [address] Shauna Beavers MD 100 [facility] [address] [place] [address] Social History Tobacco Use Types Packs/Day Years [...] on filedocumented in this encounter Care Teams Microsoft Net Developer Relationship Specialty Start Date End Date Shauna Beavers MD 100 [facility] [address] [place] [address] PCP - General Internal Medicine 05/23/15 11/16/19 Pcp, No PCP - General General Medicine 11/17/19 documented as of this encounter
--- OUTSIDE RECORDS SUMMARY | 2025-05-10 12:24 | XMS_ITS | Encounter Summary ---
Author Organization [facility] Address [address] [place], [place] [id number] Care Team Providers Care Engineering Clerk Name Role Phone Shauna Beavers MD Primary Care Provider [phone] Pcp, No Primary Care Provider Unavailabl e Encounter Details Date Type Department Care Team (Late st Contact Info) Description 04/04/2016 Scanned Document [facility] 10 100 [facility] [address] [place] [address] Shauna Beavers MD 100 [facility] [address] [place] [address] Social History Tobacco Use Types Packs/Day Years [...] on filedocumented in this encounter Care Teams Engineering Clerk Relationship Specialty Start Date End Date Shauna Beavers MD 100 [facility] [address] [place] [address] PCP - General Internal Medicine 05/23/15 11/16/19 Pcp, No PCP - General General Medicine 11/17/19 documented as of this encounter
--- OUTSIDE RECORDS SUMMARY | 2025-05-10 12:24 | XMS_ITS | Encounter Summary ---
Author Organization [facility] Address [address] [place] [address] Care Team Providers Care Bowling Alley Operator Name Role Phone Shauna Beavers MD Primary Care Provider [phone] Pcp, No Primary Care Provider Unavailabl e Encounter Details Date Type Department Care Team (Late st Contact Info) Description 12/25/2015 Scanned Document [facility] 10 100 [facility] [address] [place] [address] Provider, Generic Social History Tobacco [...] an unspecified provider. us Generic Provider IMG LEGACY PROCEDURES Final Res ult documented in this encounter Visit Diagnoses Not on filedocumented in this encounter Care Teams Bowling Alley Operator Relationship Specialty Start Date End Date Shauna Beavers MD 100 [facility] [address] [place], [place] [phone] PCP - General Internal Medicine 05/23/15 11/16/19 Pcp, No PCP - General General Medicine 11/17/19 documented as of this encounter
== END 2025-05-10 12:01 | disposition home or self-care (01) ==
LOC: HO.HMCC 11:29
PROVIDERS: PCP Internal Medicine; Visit Provider Internal Medicine
DX: Z00.01 Encounter for general adult medical examination with abnormal findings (principal); N63.21 Unspecified lump in the left breast, upper outer quadrant; G43.109 Migraine with aura, not intractable, without status migrainosus

== ENCOUNTER 2025-06-09 13:13 | Outpatient (REF) | payer OTHER, SELFPAY ==
--- OUTSIDE RECORDS SUMMARY | 2019-05-03 13:42 | XMS_ITS | Encounter Summary ---
Author Organization [facility] Address [address] [place] [address] Care Team Providers Care Collection Clerk Name Role Phone Shauna Beavers MD Primary Care Provider [phone] Encounter Details Date Type Department Care Team (Late st Contact Info) Description 05/03/2019 1:42 PM EDT Hospital Encounter [facility] [address] [place] [address] Gordon Amaya MD [address] [place] [address] Social History Tobacco Use Types Packs/Day Years [...] on filedocumented in this encounter Care Teams Collection Clerk Relationship Specialty Start Date End Date Shauna Beavers MD [address] [facility] [address] [place] [address] PCP - General Internal Medicine 05/23/15 11/16/19 documented as of this encounter
--- NOTE | ~2025-06-09 | US_ITS ---
EXAMINATION(S): 1. MM DIAGNOSTIC DIGITAL BREAST TOMOSYNTHESIS, BILATERAL 2. Targeted ultrasound of the left breast CLINICAL INFORMATION: Left breast lump at 1:00, felt by the provider. Patient does not feel the lump. COMPARISON: None. This is a baseline study. TECHNIQUE: Digital breast tomosynthesis is performed in both the mediolateral oblique and craniocaudal views along with computer-aided detection (CAD). Synthesized 2D images are generated from the tomosynthesis. No skin marker was placed as the patient is unable to identify the location of the palpable concern FINDINGS: BREAST COMPOSITION: There are scattered areas of fibroglandular density. RIGHT BREAST: No significant masses, suspicious calcifications or other abnormalities are seen. LEFT BREAST: No significant masses, suspicious calcifications or other abnormalities are seen. Targeted ultrasound of the left breast was performed at the location of the palpable concern felt by the provider. The survey performed from 12:00-2:00 axis did not reveal suspicious sonographic findings. US/US breast LT limited mamm only IMPRESSION: RIGHT BREAST: Negative, no mammographic evidence of malignancy. LEFT BREAST: Negative, no evidence of malignancy. In particular, no imaging findings to accounts for palpable concern. Clinical follow-up is recommended. ASSESSMENT: Category 1: Negative RECOMMENDATION: 1. Patient should be managed based on the clinical impression. 2. Otherwise, routine annual screening mammography. (starting at the age of 4040 years old) Results were provided to the patient at time of visit by the technologist. This patient's information was entered into a reminder system with a target due date for their next mammogram. Electronically signed by: Karrie Laguerre MD 06/09/2025 05:47 PM EDT
--- OUTSIDE RECORDS SUMMARY | 2025-06-09 17:52 | XMS_ITS | Encounter Summary ---
Author Organization [facility] Address [address] [place] [address] Care Team Providers Care Mirror Specialist Name Role Phone Shauna Beavers MD Primary Care Provider [phone] Pcp, No Primary Care Provider Unavailabl e Encounter Details Date Type Department Care Team ([facility] st Contact Info) Description 05/06/2019 Telephone [facility] [place] [address] [place] [address] Radha Prather RT [address] [place] [address] Social History Tobacco Use Types Packs/Day Years [...] on filedocumented in this encounter Care Teams Mirror Specialist Relationship Specialty Start Date End Date Shauna Beavers MD 100 [facility] 203 [place], [place] [phone] PCP - General Internal Medicine 05/23/15 11/16/19 Pcp, No PCP - General General Medicine 11/17/19 documented as of this encounter
--- OUTSIDE RECORDS SUMMARY | 2025-06-09 17:52 | XMS_ITS | Clinical Summary ---
Author Organization [facility] Address [address] [place] [address] Care Team Providers Care Head Automatic Sawyer Name Role Phone Pcp, No Primary Care [...] Vaccines (1 - 3-dose SCDM series) 2021 Influenza Vaccine 04/15/2025 09/17/2019, , 05/14/2016 COVID-19 Vaccine ( season) 2025 DTaP/Tdap/Td Vaccines (2 - T d or [...] Most Recently Relevant to Health Maintenance [facility] Care Teams Head Automatic Sawyer Relationship Specialty Start Date End Date Pcp, No PCP - General General Medicine 11/17/19
--- OUTSIDE RECORDS SUMMARY | 2025-06-09 17:52 | XMS_ITS | Encounter Summary ---
Author Organization [facility] Address [address] [place] [address] Care Team Providers Care Automatic Lump Making Machine Tender Name Role Phone Shauna Beavers MD Primary Care Provider [phone] Pcp, No Primary Care Provider Unavailabl e Encounter Details Date Type Department Care Team (Late st Contact Info) Description 10/11/2015 Scanned Document [address] [address] Provider, Generic Social History Tobacco [...] on filedocumented in this encounter Care Teams Automatic Lump Making Machine Tender Relationship Specialty Start Date End Date Shauna Beavers MD [address] [place] [address] [address] [place] [address] PCP - General Internal Medicine 05/23/15 11/16/19 Pcp, No PCP - General General Medicine 11/17/19 documented as of this encounter
--- OUTSIDE RECORDS SUMMARY | 2025-06-09 17:52 | XMS_ITS | Encounter Summary ---
Author Organization [facility] Address [address] [place] [address] Care Team Providers Care Home Lighting Adviser Name Role Phone Shauna Beavers MD Primary Care Provider [phone] Pcp, No Primary Care Provider Unavailabl e Encounter Details Date Type Department Care Team (Late st Contact Info) Description 06/11/2019 Scanned Document [facility] 10 100 [facility] 203 [place] [phone] Provider, Aileen, [address] [place] [address] Social History Tobacco Use Types Packs/Day Years [...] on filedocumented in this encounter Care Teams Home Lighting Adviser Relationship Specialty Start Date End Date Shauna Beavers MD 100 [facility] [address] [place], [place] [phone] PCP - General Internal Medicine 05/23/15 11/16/19 Pcp, No PCP - General General Medicine 11/17/19 documented as of this encounter
--- OUTSIDE RECORDS SUMMARY | 2025-06-09 17:52 | XMS_ITS | Encounter Summary ---
Author Organization [facility] Address [address] [place] [address] Care Team Providers Care Fish And Game Club Manager Name Role Phone Shauna Beavers MD Primary Care Provider [phone] Pcp, No Primary Care Provider Unavailabl e Encounter Details Date Type Department Care Team (Late st Contact Info) Description 06/21/2015 Scanned Document [facility] [address] [place] [address] Provider, Generic Social History Tobacco Use [...] on filedocumented in this encounter Care Teams Fish And Game Club Manager Relationship Specialty Start Date End Date Shauna Beavers MD 100 [facility] 203 [place] [address] PCP - General Internal Medicine 05/23/15 11/16/19 Pcp, No PCP - General General Medicine 11/17/19 documented as of this encounter
--- OUTSIDE RECORDS SUMMARY | 2025-06-09 17:52 | XMS_ITS | Encounter Summary ---
Author Organization [facility] Address [address] [place], [place] [address] Care Team Providers Care Rubber Compounder Mixer Name Role Phone Shauna Beavers MD Primary Care Provider [phone] Pcp, No Primary Care Provider Unavailabl e Encounter Details Date Type Department Care Team (Late st Contact Info) Description 04/08/2016 Scanned Document [facility] 10 100 [facility] 203 [place] [address] Shauna Beavers MD 100 [facility] 203 [place] [address] Social History Tobacco Use Types Packs/Day Years [...] on filedocumented in this encounter Care Teams Rubber Compounder Mixer Relationship Specialty Start Date End Date Shauna Beavers MD 100 [facility] 203 [place] [address] PCP - General Internal Medicine 05/23/15 11/16/19 Pcp, No PCP - General General Medicine 11/17/19 documented as of this encounter
--- OUTSIDE RECORDS SUMMARY | 2025-06-09 17:52 | XMS_ITS | Encounter Summary ---
Author Organization [facility] Address [address] [place] [address] Care Team Providers Care Change Management Administrator Name Role Phone Shauna Beavers MD Primary Care Provider [phone] Pcp, No Primary Care Provider Unavailabl e Encounter Details Date Type Department Care Team (Late st Contact Info) Description 02/06/2016 Scanned Document [address] [phone] Provider, Generic Social History Tobacco Use Types [...] on filedocumented in this encounter Care Teams Change Management Administrator Relationship Specialty Start Date End Date Shauna Beavers MD [address] [place] [address] [address] [place] [address] PCP - General Internal Medicine 05/23/15 11/16/19 Pcp, No PCP - General General Medicine 11/17/19 documented as of this encounter
--- OUTSIDE RECORDS SUMMARY | 2025-06-09 17:52 | XMS_ITS | Encounter Summary ---
Author Organization [facility] Address [address] [place] [address] Care Team Providers Care Autotransfusionist Name Role Phone Shauna Beavers MD Primary Care Provider Pcp, No Primary Care Provider Unavailabl e Encounter Details Date Type Department Care Team (Late st Contact Info) Description 12/25/2015 Scanned Document [facility] 10 100 [facility] [address] [place] [address] Provider, Generic Social History Tobacco [...] on filedocumented in this encounter Care Teams Autotransfusionist Relationship Specialty Start Date End Date Shauna Beavers MD 100 [facility] [address] [place], [place] [phone] PCP - General Internal Medicine 05/23/15 11/16/19 Pcp, No PCP - General General Medicine 11/17/19 documented as of this encounter
--- OUTSIDE RECORDS SUMMARY | 2025-06-09 17:52 | XMS_ITS | Clinical Summary ---
Author Organization [facility] Address [address] [place] [address] Care Team Providers Care Computational Mathematician Name Role Phone Unavailable Primary Care Provider [...]
--- OUTSIDE RECORDS SUMMARY | 2025-06-09 17:52 | XMS_ITS | Encounter Summary ---
Author Organization [facility] Address [address] [place], [place] [phone] Care Team Providers Care Rear Admiral Name Role Phone Shauna Beavers MD Primary Care Provider [phone] Pcp, No Primary Care Provider Unavailabl e Encounter Details Date Type Department Care Team (Late st Contact Info) Description 04/04/2016 Scanned Document [facility] 10 100 [facility] 203 [place] [address] Shauna Beavers MD 100 [facility] [address] [place] [address] Social History Tobacco Use Types Packs/Day Years [...] on filedocumented in this encounter Care Teams Rear Admiral Relationship Specialty Start Date End Date Shauna Beavers MD 100 [facility] [address] [place] [address] PCP - General Internal Medicine 05/23/15 11/16/19 Pcp, No PCP - General General Medicine 11/17/19 documented as of this encounter
--- OUTSIDE RECORDS SUMMARY | 2025-06-09 17:53 | XMS_ITS | Encounter Summary ---
Author Organization [facility] Address [address] [place] [address] Care Team Providers Care Lightning Protection Installer Name Role Phone Shauna Beavers MD Primary Care Provider [phone] Pcp, No Primary Care Provider Unavailabl e Encounter Details Date Type Department Care Team (Late st Contact Info) Description 05/15/2017 Scanned Document [facility] 10 100 [facility] 203 [place] [address] Provider, Generic Social History Tobacco [...] on filedocumented in this encounter Care Teams Lightning Protection Installer Relationship Specialty Start Date End Date Shauna Beavers MD 100 [facility] [address] [place] [address] PCP - General Internal Medicine 05/23/15 11/16/19 Pcp, No PCP - General General Medicine 11/17/19 documented as of this encounter
== END 2025-06-09 13:14 | disposition home or self-care (01) ==
LOC: HO.MAMMO 13:13
PROVIDERS: PCP Internal Medicine; Visit Provider Internal Medicine
DX: N63.21 Unspecified lump in the left breast, upper outer quadrant (principal)
CPT/HCPCS: 76642; 77062; 77066

== ENCOUNTER → 2025-06-09 13:24 | Outpatient (BNV) | payer OTHER, SELFPAY | PROVIDERS: PCP Internal Medicine; Visit Provider Radiology Body Imaging | DX: N63.21 Unspecified lump in the left breast, upper outer quadrant (principal) | CPT/HCPCS: 76642; 77062; 77066 ==